=== PATIENT | female | born 1930 | race Caucasian/White ===

== ENCOUNTER 2019-01-14 11:16 | Observation (INO) | payer MEDICARE ==
[2019-01-14] MEDS ORDERED: TYLENOL EXTRA STRENGTH 500 MG PO ONE (15:21)
[2019-01-14 15:38] LABS: Hematocrit 41.3 % (35-47); Hemoglobin 13.4 gm/dl (12.0-16.0); Mean Cell Volume 95.4 fl (78-100); Mean Corpuscular Hemoglobin 30.9 pg (26-32); Mean Corpuscular Hgb Concent. 32.4 g/dl (32-36); Mean Platelet Volume 11.2 fl (6-9.5); Platelet Count 251 K/mm3 (150-450); Red Blood Count 4.33 M/mm3 (4.1-5.4); Red Cell Distribution Width 13.3 % (11.5-14.0); White Blood Count 5.6 K/mm3 (4.0-10.5)
[2019-01-14 15:55] LABS: ALBUMIN 4.2 g/dL (3.5-5.0); ALKALINE PHOSPHATASE 79 U/L (38-126); ANION GAP 11.8 MEQ/L (5-15); BLOOD UREA NITROGEN 19 mg/dL (7-17); CHLORIDE 105 mmol/L (98-107); Carbon Dioxide 27 mmol/L (22-30); Creatinine 1 0.82 mg/dL (0.52-1.04); Glucose 119 mg/dL (74-106); Potassium 3.5 mmol/L (3.5-5.1); SGOT/AST 23 U/L (14-36); SGPT/ALT 16 U/L (0-35); SODIUM 141 mmol/L (137-145); Total Protein 7.4 g/dL (6.3-8.2)
[2019-01-14 16:12] VITALS: BP 127/60; PULSE 92; O2SAT 96
--- NOTE | 2019-01-14 17:17 | XRAY ---
Exam: Supine film of the abdomen from 01/14/2019. Comparison: CT of the abdomen and pelvis without and with IV contrast from 01/08/2019. Indication: Back pain/fecal stasis in 88-year-old female. Findings: I see retained CT oral contrast within the transverse colon, descending colon, and sigmoid colon. The distal transverse colon and proximal descending colon appear tortuous in course. I do not see any significant remaining stool within the colon, although there may be a small amount within the lateral aspect of the cecum. There is no bowel distention. There is no evidence of hepatosplenomegaly. Significant atherosclerotic vascular calcification is seen within the abdominal aorta and iliac arteries. I again note a mild distal abdominal aortic aneurysm, better demonstrated on the CT study from 01/08/2019. No other suspicious abdominal calcifications are seen. Surgical clips overlie the left groin at the inferior margin of the film. The bones are demineralized. Numerous chronic appearing compression deformities are seen within the lower thoracic and upper lumbar spine as well as the central aspect of the superior vertebral endplate of L5. This is similar to the recent CT study. Impression: 1. Retained CT oral contrast is seen within the transverse colon, descending colon, and sigmoid colon. There is no bowel obstruction. No significant remaining stool is seen within the colon. 2. Other stable findings, as discussed above.
== END 2019-01-14 18:35 | disposition home or self-care (01) ==
LOC: MED SURG 11:29
PROVIDERS: ADMIT Family Medicine; ATTEND Family Medicine
DX: K59.00 Constipation, unspecified (principal); Z79.899 Other long term (current) drug therapy
CPT/HCPCS: 36415; 74018; 80053; 85027; G0378; A9270-GY

== ENCOUNTER 2019-04-21 16:31 | Emergency (ER) | payer MEDICARE ==
--- NOTE | 2019-04-21 17:28 | ERPHSYRPT ---
- History of Present Illness Time Seen by Provider: 04/21/19 16:45 Source: patient, family, EMS Exam Limitations: no limitations Patient Subjective Stated Complaint: Pt fell on [place] on her right hip and her walker fell on top of her, pt has chronic back pain and is to have an MRI done tomorrow per Dr. Gaming office, pt isn't sure why she is here because she stated that she isn't feeling any additional pain, she stated that the pain that she is having is her regular chronic back pain that she has Triage Nursing Assessment: Pt arrived by EMS, hypotensive, edema to right lower extremity, denies pain to right hip, denies any additional pain from the fall, chronic pain to the lumbar spine, rates pain 7/10 from her back, doesn't appear to have any injuries Physician History: 88 y/o white female presents after a fall at home occurring [place]. pt fell onto her right hip. walker than fell on right hip. pt denies any new pain. pt has chronic back pain. pt has mri of spine tomorrow as outpt. family want the right hip xrayed. pt has no complaints. Occurred: just prior to arrival Reason for Fall: lost balance, slipped Injuries/Pain Location: lower extremity (fell onto right hip but no specific pain) Loss of Consciousness: no loss of consciousness Severity of Pain-Max: none Severity of Pain-Current: none Associated Symptoms (Fall): denies symptoms Allergies/Adverse Reactions: acetaminophen [From Vicodin] Adverse Reaction (Mild, Verified 04/21/19 16:53) NASUEA cyclobenzaprine Adverse Reaction (Mild, Verified 04/21/19 16:53) Nausea diazepam [From Valium] Adverse Reaction (Mild, Verified 04/21/19 16:53) Nausea hydrocodone [From Vicodin] Adverse Reaction (Mild, Verified 04/21/19 16:53) NASUEA sulfamethoxazole [From Bactrim] Adverse Reaction (Mild, Verified 04/21/19 16:53) Nausea trimethoprim [From Bactrim] Adverse Reaction (Mild, Verified 04/21/19 16:53) Nausea Home Medications: Aspirin 81 gm Chew [Baby Aspirin 81 mg Chew] 81 mg PO DAILY 05/05/16 [ History] Atorvastatin Calcium [Lipitor] 10 mg PO DAILY 05/05/16 [History] Meclizine HCl 25 mg [Antivert 25 mg] 25 mg PO UD 05/05/16 [History] Metoprolol Succinate 25 mg Xl* [Toprol-Xl 25MG Tablets] 25 mg PO DAILY [History] Nitroglycerin 0.4 mg Tablet [Nitrostat 0.4 MG Tablet] 0.4 mg SL UD PRN [History] Diclofenac Sodium [Voltaren] 1 gel TOP TID PRN 01/14/19 [History] Docusate Sodium 100 mg [Colace 100 MG] 100 mg PO BID 01/14/19 [History] Triamterene/Hydrochlorothiazid [Triamterene-Hctz 37.5-25 mg Tb] 1 tab PO UD 03/27 [History] Hx Tetanus, Diphtheria Vaccination/Date Given: No Hx Influenza Vaccination/Date Given: Yes Hx Pneumococcal Vaccination/Date Given: Yes - Review of Systems Constitutional: No Symptoms Eyes: No Symptoms Ears, Nose, & Throat: No Symptoms Respiratory: No Symptoms Cardiac: No Symptoms Abdominal/Gastrointestinal: No Symptoms Genitourinary Symptoms: No Symptoms Musculoskeletal: Fall Skin: No Symptoms Neurological: No Symptoms Psychological: No Symptoms Endocrine: No Symptoms Hematologic/Lymphatic: No Symptoms Immunological/Allergic: No Symptoms All Other Systems: Reviewed and Negative - Past Medical History Pertinent Past Medical History: Yes Neurological History: No Pertinent History ENT History: No Pertinent History Cardiac History: Hypertension, Myocardial Infarction ([place]) Respiratory History: No Pertinent History Endocrine Medical History: Diabetes Type II Musculoskeletal History: Arthritis, Degenerative Disk Disease GI Medical History: Other History: Other Psycho-Social History: No Pertinent History Female Reproductive Disorders: No Pertinent History Other Medical History: hx of constipation x 2 weeks, possible abdominal mass found on cat scan last week. - Past Surgical History Past Surgical History: Yes Neuro Surgical History: No Pertinent History Cardiac: CABG Respiratory: No Pertinent History Gastrointestinal: No Pertinent History Genitourinary: No Pertinent History Musculoskeletal: No Pertinent History Female Surgical History: No Pertinent History - Social History Smoking Status: Former smoker Exposure to second hand smoke: No Drug Use: none Patient Lives Alone: Yes - Nursing Vital Signs Nursing Vital Signs: Initial Vital Signs Temperature 97.5 F 04/21/19 16:32 Pulse Rate 82 04/21/19 16:32 Blood Pressure 96/58 04/21/19 16:32 O2 Sat by Pulse Oximetry 99 04/21/19 16:32 Pain Scale Pain Intensity 7 - [place] Coma Score Best Eye Response ([place]): (4) open spontaneously Best Verbal Response ([place]): (5) oriented Best Motor Response (Jeri): (6) obeys commands [place] Total: 15 - Physical Exam General Appearance: no apparent distress Head Injury: no evidence of injury Eye Exam: PERRL/EOMI, eyes nml inspection ENT Exam: airway nml, evidence of ENT injury Neck Exam: supple, trachea midline, full range of motion, normal alignment, normal inspection Respiratory/Chest Exam: No respiratory distress Gastrointestinal Exam: No tenderness Rectal Exam: not done Back Exam: normal inspection, vertebral tenderness (chronic), decreased range of motion (chronic) Extremity Exam: normal inspection, normal range of motion, pelvis stable, other (no ecchymosis or tenderness of right hip ) Neurologic Exam: alert, oriented x 3, cooperative, assembler caterpillar spider II-XII nml as tested Skin Exam: normal color, warm, dry SpO2 Interpretation: normal SpO2: 99 O2 Delivery: Room Air Ordered Tests: Active Orders 24 hr Category Date Time Status HIP UNI (2V) INCL PEL IF DONE Stat Exams 04/21/19 17:00 Ordered - Progress Progress Note: 04/21/19 18:04 xray right hip-no acute fx or dislocation Counseled pt/family regarding: need for follow-up, rad results - Departure Departure Disposition: Home Clinical Impression: Fall Condition: Stable Critical Care Time: No Referrals: WENCESLAO CASTANEDA [Primary Care Provider] - Additional Instructions: return tomorrow for MRI you have scheduled
[2019-04-21 19:13] VITALS: O2SAT 98
[2019-04-21 20:09] VITALS: BP 129/73; PULSE 78
--- NOTE | 2019-04-22 08:46 | XRAY ---
Indication: Right hip pain following fall. Comparison: June 11, 2018. 2 views of the right hip again demonstrates osteopenia, surgical clips, and scattered vascular calcifications. No new/acute bony, articular, or soft tissue abnormalities.
== END 2019-04-21 20:25 | disposition home or self-care (01) ==
LOC: ED 16:31
DX: M25.551 Pain in right hip (principal); W01.198A Fall on same level from slipping, tripping and stumbling with subsequent striking against other object, initial encounter; Y93.89 Activity, other specified; Y92.9 Unspecified place or not applicable; M54.9 Dorsalgia, unspecified; G89.29 Other chronic pain; Z79.899 Other long term (current) drug therapy; E11.9 Type 2 diabetes mellitus without complications; I10 Essential (primary) hypertension; I25.2 Old myocardial infarction; M19.90 Unspecified osteoarthritis, unspecified site
CPT/HCPCS: 73502; 99284

== ENCOUNTER 2019-05-23 01:53 | Inpatient (IN) | payer MEDICARE ==
[2019-05-23] MEDS ORDERED: Sodium Chloride 0.9% 1000 ML 1,000 ML IV STA (02:03)
[2019-05-23] MEDS ORDERED: BENADRYL 50 MG/ML IV ONE (02:03)
[2019-05-23] MEDS ORDERED: Pepcid 20 MG VIAL IV ONE ×2 (02:03→02:08)
[2019-05-23] MEDS ORDERED: Sodium Chloride 0.9% 1000 ML 1,000 ML ONE (02:08)
[2019-05-23] MEDS ORDERED: BENADRYL 50 MG/ML ONE (02:08)
--- NOTE | 2019-05-23 02:25 | ERPHSYRPT ---
- History of Present Illness Time Seen by Provider: 05/23/19 02:05 Historian: patient Exam Limitations: no limitations Patient Subjective Stated Complaint: pt c/o freq vomiting at home. also c/o back pain Triage Nursing Assessment: pt arrive per ambulance. transfer to [facility] with assist of 3. pt alert, oriented to person and able to give the date and year. unsure how long she has been sick at home. ems states that pt has a neighbor that checks on her frequently and states that this level of confusion is the pt' s norm. abd soft and nontender. Physician History: Patient has had vomiting for 4 days. Patient was concerned it could be her heart. She hit her medic alert button and EMS went to her home. They gave her Zofran on the way to the emergency department which has helped her symptoms. Timing/Duration: day(s) (5) Activities at Onset: none Quality: burning Abdominal Pain Onset Location: epigastric Pain Radiation: no radiation Severity of Pain-Max: mild Severity of Pain-Current: none Modifying Factors: Improves With: nothing Associated Symptoms: nausea, vomiting, No back, No chest pain, No diaphoresis, No diarrhea, No fever/chills, No fatigue, No headache, No heartburn, No loss of appetite, No neck pain, No rash, No shortness of breath, No syncope, No weakness Previous symptoms: no prior history, no recent treatment Allergies/Adverse Reactions: acetaminophen [From Vicodin] Adverse Reaction (Mild, Verified 04/21/19 16:53) NASUEA cyclobenzaprine Adverse Reaction (Mild, Verified 04/21/19 16:53) Nausea diazepam [From Valium] Adverse Reaction (Mild, Verified 04/21/19 16:53) Nausea hydrocodone [From Vicodin] Adverse Reaction (Mild, Verified 04/21/19 16:53) NASUEA sulfamethoxazole [From Bactrim] Adverse Reaction (Mild, Verified 04/21/19 16:53) Nausea trimethoprim [From Bactrim] Adverse Reaction (Mild, Verified 04/21/19 16:53) Nausea Home Medications: Aspirin 81 gm Chew [Baby Aspirin 81 mg Chew] 81 mg PO DAILY 05/05/16 [ History] Atorvastatin Calcium [Lipitor] 10 mg PO DAILY 05/05/16 [History] Meclizine HCl 25 mg [Antivert 25 mg] 25 mg PO UD 05/05/16 [History] Metoprolol Succinate 25 mg Xl* [Toprol-Xl 25MG Tablets] 25 mg PO DAILY [History] Nitroglycerin 0.4 mg Tablet [Nitrostat 0.4 MG Tablet] 0.4 mg SL UD PRN [History] Diclofenac Sodium [Voltaren] 1 gel TOP TID PRN 01/14/19 [History] Docusate Sodium 100 mg [Colace 100 MG] 100 mg PO BID 01/14/19 [History] Triamterene/Hydrochlorothiazid [Triamterene-Hctz 37.5-25 mg Tb] 1 tab PO UD 03/27 [History] Hx Tetanus, Diphtheria Vaccination/Date Given: No Hx Influenza Vaccination/Date Given: Yes Hx Pneumococcal Vaccination/Date Given: Yes Immunizations Up to Date: No - Review of Systems Constitutional: No Fever, No Chills, No Fatigue Eyes: No Symptoms Ears, Nose, & Throat: No Symptoms, No Mouth Swelling, No Throat Pain, No Throat Swelling, No Painful Swallowing Respiratory: No Cough, No Dyspnea Cardiac: No Chest Pain, No Edema, No Syncope Abdominal/Gastrointestinal: Nausea, Vomiting, No Abdominal Pain, No Diarrhea, No Constipation, No Hematemesis, No Hematochezia, No Melena Genitourinary Symptoms: No Dysuria, No Hematuria, No Flank Pain Musculoskeletal: No Back Pain, No Neck Pain Skin: No Rash Neurological: No Dizziness, No Focal Weakness, No Headache, No Sensory Changes, No Speech Changes, No Tremors Psychological: No Symptoms, No Emotional Lability Endocrine: No Symptoms, No Excessive Sweating Hematologic/Lymphatic: No Easy Bleeding, No Easy Bruising All Other Systems: Reviewed and Negative - Past Medical History Pertinent Past Medical History: Yes Neurological History: No Pertinent History ENT History: No Pertinent History Cardiac History: Hypertension, Myocardial Infarction ([place]) Respiratory History: No Pertinent History Endocrine Medical History: Diabetes Type II Musculoskeletal History: Arthritis, Degenerative Disk Disease GI Medical History: Other History: Other Psycho-Social History: No Pertinent History Female Reproductive Disorders: No Pertinent History Other Medical History: hx of possible abd mass- pt unable to give hx. - Past Surgical History Past Surgical History: Yes Neuro Surgical History: No Pertinent History Cardiac: CABG Respiratory: No Pertinent History Gastrointestinal: No Pertinent History Genitourinary: No Pertinent History Musculoskeletal: No Pertinent History Female Surgical History: No Pertinent History - Social History Smoking Status: Former smoker Exposure to second hand smoke: No Drug Use: none Patient Lives Alone: Yes - Nursing Vital Signs Nursing Vital Signs: Initial Vital Signs Pulse Rate 81 05/23/19 01:58 Respiratory Rate 16 05/23/19 01:58 Blood Pressure 167/76 05/23/19 01:58 O2 Sat by Pulse Oximetry 99 05/23/19 01:58 Pain Scale Pain Intensity 0 - Physical Exam General Appearance: no apparent distress, alert Eye Exam: PERRL/EOMI, eyes nml inspection, No scleral icterus, No pale conjunctivae Ears, Nose, Throat Exam: normal ENT inspection, pharynx normal, moist mucous membranes Neck Exam: normal inspection, non-tender, supple, full range of motion, No meningismus, No Brudzinski, No lymphadenopathy Respiratory Exam: normal breath sounds, lungs clear, airway intact, No respiratory distress, No diminished breath sounds, No accessory muscle use, No crackles/rales, No rhonchi, No wheezing, No stridor Cardiovascular Exam: regular rate/rhythm, normal heart sounds, normal peripheral pulses, capillary refill <2 sec Gastrointestinal/Abdomen Exam: soft, normal bowel sounds, No tenderness, No distention, No mass, No guarding, No pulsatile mass, No rebound Back Exam: normal inspection, normal range of motion, No CVA tenderness, No vertebral tenderness Extremity Exam: normal inspection, normal range of motion, pelvis stable Neurologic Exam: alert, cooperative, respiratory clinician II-XII nml as tested, normal mood/ affect, nml cerebellar function, sensation nml, No motor deficits Skin Exam: normal color, warm, dry, No rash, No petechiae, No cyanosis SpO2 Interpretation: normal SpO2: 99 O2 Delivery: Room Air - Course Nursing assessment & vital signs reviewed: Yes EKG Interpreted by Me: RATE (84), Sinus Rhythm, NORMAL AXIS, NORMAL INTERVALS, NORMAL QRS, NORMAL ST-T, Other (rare PVC; negative previous EKG for comparison) - Radiology Exams Chest X-ray Interpretation: Interpreted by me, Reviewed by me, No Fracture, No Pneumonia, No Pneumothorax, Nml Heart Size, No Infiltrates, Nml Mediastinum - CT Exams Abdomen/Pelvis CT Interpretation: Tele-radiologist Report, Other (per radiologist interpretation: Lungs show any atelectasis or scarring in the left lower lobe; small hiatal hernia; distended distal esophagus was suggestive of reflux. Liver : Normal with no masses; gallbladder bile duct: Distended gallbladder; pancreas, , spleen, kidneys and ureters were normal with no signs of splenomegaly, hydronephrosis, or ductal dilation; adrenals: Stable undetermined left adrenal mass; stomach and rales: Scattered colonic diverticula. No evidence of acute reticularis. No bowel structures. Appendix: Normal appendix; it appears: Unremarkable. No free air. No significant fluid collection. [place]: Atherosclerotic disease of the abdominal aorta. The vessels markedly tortuous and dilated at 2.5 cm. Lymph nodes: No enlarged lymph nodes; bladder: Mildly distended urinary bladder; rectal: Unremarkable; bones: Osteopenia stable compression deformities of multiple thoracic and lumbar vertebrae; soft tissues : Surgical clips in the left groin. Overall impression: Small hiatal hernia. Distended distal esophagus suggestive of reflux. As her gallbladder about other serious signs acute cholecystitis. Scattered colonic diverticula. No evidence of acute diverticulitis. No bowel structures appeared normal appendix. atherosclerotic disease of the abdominal aorta. The vessel is markedly tortuous and dilated to 2.5 cm.) Ordered Tests: Active Orders 24 hr Category Date Time Status EKG-ER Only STAT Care 05/23/19 02:03 Active IV Insertion STAT Care 05/23/19 02:03 Active NPO (ED) STAT Care 05/23/19 02:03 Active ABDOMEN AND PELVIS W/0 CONTRAS [CT] Stat Exams 05/23/19 02:41 Taken CHEST 1 VIEW (PORTABLE) Stat Exams 05/23/19 02:03 Taken AMYLASE Stat Lab 05/23/19 02:48 Completed CBC W DIFF Stat Lab 05/23/19 02:48 Completed CMP Stat Lab 05/23/19 02:48 Completed Lactic Acid Stat Lab 05/23/19 02:40 Completed PROTIME WITH INR Stat Lab 05/23/19 02:48 Completed TROPONIN Q3H Lab 05/23/19 02:48 Completed TROPONIN Q3H Lab 05/23/19 05:38 Completed TROPONIN Q3H Lab 05/23/19 08:15 Ordered TROPONIN Q3H Lab 05/23/19 11:15 Ordered TROPONIN Q3H Lab 05/23/19 14:15 Ordered UA W/RFX UR CULTURE Stat Lab 05/23/19 02:03 Uncollected Medication Summary Discontinued Medications Generic Name Dose Route Start Last Admin Trade Name Home PRN Reason Stop Dose Admin Diphenhydramine HCl 25 mg 05/23/19 02:03 05/23/19 02:19 Benadryl 50 Mg/Ml IV 05/23/19 02:04 25 mg STAT ONE Administration Diphenhydramine HCl Confirm 05/23/19 02:08 Benadryl 50 Mg/Ml Administered 05/23/19 02:09 Dose 50 mg .ROUTE .STK-MED ONE Famotidine 20 mg 05/23/19 02:03 05/23/19 02:20 Pepcid 20 Mg Vial IV 05/23/19 02:04 20 mg STAT ONE Administration Famotidine Confirm 05/23/19 02:08 Pepcid 20 Mg Vial Administered 05/23/19 02:09 Dose 20 mg IV .STK-MED ONE Sodium Chloride 1,000 mls @ 999 mls/hr 05/23/19 02:03 05/23/19 02:35 Sodium Chloride 0.9% 1000 Ml IV 05/23/19 03:03 999 mls/hr .Q1H1M STA Administration Sodium Chloride Confirm 05/23/19 02:08 Sodium Chloride 0.9% 1000 Ml Administered 05/23/19 02:09 Dose 1,000 mls @ ud .ROUTE .STK-MED ONE Lab/Rad Data: Laboratory Result Diagrams 05/23/19 02:48 05/23/19 02:48 Laboratory Results 05/23/19 05/23/19 05/23/19 Range/Units 05:38 02:48 02:48 WBC (4.0-10.5) K/mm3 RBC (4.1-5.4) M/mm3 Hgb (12.0-16.0) gm/dl Hct (35-47) % MCV (78-100) fl MCH (26-32) pg MCHC (32-36) g/dl RDW (11.5-14.0) % Plt Count (150-450) K/mm3 MPV (6-9.5) fl Gran % (36.0-66.0) % Eos # (Auto) (0-0.5) Absolute Lymphs (auto) (1.0-4.6) Absolute Monos (auto) (0.0-1.3) Lymphocytes % (24.0-44.0) % Monocytes % (0.0-12.0) % Eosinophils % (0.00-5.0) % Basophils % (0.0-0.4) % Absolute Granulocytes (1.4-6.9) Basophils # (0-0.4) PT 13.2 H (9.95-12.35) SECONDS INR 1.16 (0.8-3.0) Sodium (137-145) mmol/L Potassium (3.5-5.1) mmol/L Chloride (98-107) mmol/L Carbon Dioxide (22-30) mmol/L Anion Gap (5-15) MEQ/L BUN (7-17) mg/dL Creatinine (0.52-1.04) mg/dL Estimated GFR ML/MIN Glucose (74-106) mg/dL Lactic Acid (0.4-2.0) Calcium (8.4-10.2) mg/dL Total Bilirubin (0.2-1.3) mg/dL AST (14-36) U/L ALT (0-35) U/L Alkaline Phosphatase (38-126) U/L Troponin I 0.030 0.015 (0.000-0.034) ng/mL Serum Total Protein (6.3-8.2) g/dL Albumin (3.5-5.0) g/dL Amylase (30-110) U/L 05/23/19 05/23/19 05/23/19 Range/Units 02:48 02:48 02:40 WBC 6.1 (4.0-10.5) K/mm3 RBC 4.06 L (4.1-5.4) M/mm3 Hgb 12.3 (12.0-16.0) gm/dl Hct 39.1 (35-47) % MCV 96.3 (78-100) fl MCH 30.2 (26-32) pg MCHC 31.5 L (32-36) g/dl RDW 13.8 (11.5-14.0) % Plt Count 262 (150-450) K/mm3 MPV 11.1 H (6-9.5) fl Gran % 69.0 H (36.0-66.0) % Eos # (Auto) 0.03 (0-0.5) Absolute Lymphs (auto) 1.33 (1.0-4.6) Absolute Monos (auto) 0.52 (0.0-1.3) Lymphocytes % 21.7 L (24.0-44.0) % Monocytes % 8.5 (0.0-12.0) % Eosinophils % 0.5 (0.00-5.0) % Basophils % 0.3 (0.0-0.4) % Absolute Granulocytes 4.22 (1.4-6.9) Basophils # 0.02 (0-0.4) PT (9.95-12.35) SECONDS INR (0.8-3.0) Sodium 145 (137-145) mmol/L Potassium 3.7 (3.5-5.1) mmol/L Chloride 106 (98-107) mmol/L Carbon Dioxide 28 (22-30) mmol/L Anion Gap 14.4 (5-15) MEQ/L BUN 23 H (7-17) mg/dL Creatinine 0.79 (0.52-1.04) mg/dL Estimated GFR > 60.0 ML/MIN Glucose 141 H (74-106) mg/dL Lactic Acid 1.4 (0.4-2.0) Calcium 9.9 (8.4-10.2) mg/dL Total Bilirubin 0.80 (0.2-1.3) mg/dL AST 18 (14-36) U/L ALT 12 (0-35) U/L Alkaline Phosphatase 61 (38-126) U/L Troponin I (0.000-0.034) ng/mL Serum Total Protein 7.7 (6.3-8.2) g/dL Albumin 4.2 (3.5-5.0) g/dL Amylase 70 (30-110) U/L - Progress Progress: improved Progress Note: 05/23/19 05:00 Patient is asymptomatic with no vomiting since coming into the emergency department 05/23/19 06:30 Patient feels well and denies any nausea, chest pain, dyspnea, back pain or abdominal pain. Discussed with Dr.: Kevin (06:50, discussed the patient with Dr Terrazas, hospitalist. Dr Terrazas accepted the patient for observation to [facility] to a telemetry bed to continue monitoring serial cardiac enzymes ) Will see patient in: hospital (observation) (@ [facility] telemetry) Counseled pt/family regarding: diagnosis, need for follow-up, rad results - Departure Departure Disposition: Observation (to [facility] telemetry) Clinical Impression: Vomiting alone, Hiatal hernia with gastroesophageal reflux, Essential hypertension, Elevated troponin I measurement Condition: Good Critical Care Time: No Referrals: WENCESLAO TERRAZAS [Primary Care Provider] - 05/23/19 Instructions: Vomiting -- Adult, Acid Reflux (Gastroesophageal Reflux Disease) , Adult (DC), Hiatal Hernia (DC) Prescriptions: Ondansetron ODT 4 MG [Zofran Odt 4 mg] 4 mg PO Q8H PRN PRN #10 tab.rapdis PRN Reason: Vomiting
[2019-05-23 02:49] LABS: Absolute Neutrophil Ct (ANC) 4.22 (1.4-6.9); BASOPHIL % 0.3 % (0.0-0.4); Basophil (Absolute #) 0.02 (0-0.4); Eosinophil % 0.5 % (0.00-5.0); Eosinophil (Absolute #) 0.03 (0-0.5); Hematocrit 39.1 % (35-47); Hemoglobin 12.3 gm/dl (12.0-16.0); Lymphocyte (Absolute #) 1.33 (1.0-4.6); Lymphocytes % 21.7 % (24.0-44.0); Mean Cell Volume 96.3 fl (78-100); Mean Corpuscular Hgb Concent. 31.5 g/dl (32-36); Mean Platelet Volume 11.1 fl (6-9.5); Monocyte (Absolute #) 0.52 (0.0-1.3); Monocytes % 8.5 % (0.0-12.0); Platelet Count 262 K/mm3 (150-450); Red Blood Count 4.06 M/mm3 (4.1-5.4); Red Cell Distribution Width 13.8 % (11.5-14.0); White Blood Count 6.1 K/mm3 (4.0-10.5)
[2019-05-23 02:52] LABS: Mean Corpuscular Hemoglobin 30.2 pg (26-32)
[2019-05-23 02:55] LABS: INR 1.16 (0.8-3.0); PROTIME 13.2 SECONDS (9.95-12.35)
[2019-05-23 03:01] LABS: ALBUMIN 4.2 g/dL (3.5-5.0); ALKALINE PHOSPHATASE 61 U/L (38-126); AMYLASE 70 U/L (30-110); ANION GAP 14.4 MEQ/L (5-15); BLOOD UREA NITROGEN 23 mg/dL (7-17); CHLORIDE 106 mmol/L (98-107); Calcium 9.9 mg/dL (8.4-10.2); Carbon Dioxide 28 mmol/L (22-30); Creatinine 1 0.79 mg/dL (0.52-1.04); Glucose 141 mg/dL (74-106); Potassium 3.7 mmol/L (3.5-5.1); SGOT/AST 18 U/L (14-36); SGPT/ALT 12 U/L (0-35); SODIUM 145 mmol/L (137-145); Total Protein 7.7 g/dL (6.3-8.2)
[2019-05-23] MEDS ORDERED: TYLENOL 325 MG PO PRN (07:20)
[2019-05-23] MEDS ORDERED: Zofran 4 MG/2 ML VIAL IV PRN (07:20)
[2019-05-23] MEDS ORDERED: MORPHINE SULFATE 4 MG INJ IV PRN (07:20)
[2019-05-23] MEDS: Sodium Chloride 0.9% 1000 ML 1,000 ML IV SCH (07:46)
--- NOTE | 2019-05-23 09:23 | XRAY ---
Indication: Nausea and vomiting 10 days. History dementia. Multiple contiguous axial images obtained through the abdomen and pelvis without contrast as ordered. Comparison: January 08, 2019. Study is slightly degraded by respiration artifact. Lung bases again demonstrates minimal fibrosis/scarring. No infiltrate or effusion. Heart is not enlarged. Stable moderate-sized fluid distended hiatal hernia presumed from gastroesophageal reflux. Noncontrasted stomach and bowel loops appear nonobstructed. Again mild scattered fecal stasis. Gallbladder again moderately distended without gallstones. No free fluid/air. Stable left adrenal gland mass with faint calcification. Remaining liver, gallbladder, pancreas, spleen, adrenal glands, kidneys, ureters, bladder, and uterus appear unremarkable for noncontrast exam. There remains extensive scattered vascular calcifications with stable 3 cm AAA. Osseous structures demonstrates stable osteopenia, multilevel degenerative spondylosis, scoliosis, and multilevel thoracolumbar endplate concave deformities. Impression: 1. Stable hiatal hernia, left adrenal gland calcified mass, mild fecal stasis, distended gallbladder, extensive arteriosclerotic disease with distal AAA, and chronic bony findings. 2. No new or acute intra-abdominal/pelvic abnormalities on this noncontrast exam. CT DI 2.91
--- NOTE | 2019-05-23 09:25 | XRAY ---
Indication: Vomiting. Comparison: December 02, 2010. Portable apical lordotic chest again hyperinflated without focal infiltrate, consolidation, or large effusion. Heart is not enlarged again demonstrating CABG surgery. Bony thorax intact again with osteopenia and degenerative changes. Impression: Stable nonacute hyperinflated chest with chronic features.
--- NOTE | 2019-05-23 09:43 | HP ---
CHIEF COMPLAINT: Chest discomfort and difficulty swallowing. HISTORY OF PRESENT ILLNESS: The patient is an 88 year-old white female presented to the emergency room due to worries about her heart although she reports that mostly her trouble is with swallowing food. She reports they seem to get stuck in the middle portion of her chest and she has had to bring it up again because it will not go down. The patient does have some issues with some dementia and is difficult to follow her history otherwise. There is no one else present with her in evaluation at this time. PAST MEDICAL/SURGICAL HISTORY: Significant for vertigo. She has mild hypertension. She has previous history of diabetes mellitus type 2, arthritis, degenerative disc disease. HOME MEDICATIONS: Aspirin 81 mg a day, atorvastatin 10 mg a day, Macrobid 25 mg daily, Metoprolol extended release 25 mg a day, nitroglycerin 0.4 mg sublingual PRN, Voltaren gel, docusate sodium 100 mg b.i.d. and Maxzide 25 daily. ALLERGIES: NORCO. CYCLOBENZAPRINE. DIAZEPAM. BACTRIM. PHYSICAL EXAMINATION: The patient's vital signs on admission showed pulse 81, respiratory rate 16 and blood pressure 167/76. O2 saturation 99%. HEENT: Normocephalic, atraumatic. Pupils equal round reactive to light. Extraocular movements intact. Oropharynx is pink and moist. NECK: Supple without lymphadenopathy, thyromegaly or JVD. CHEST: Clear to auscultation. HEART: Regular rate and rhythm without significant murmurs, rubs or gallops. ABDOMEN: Soft. No palpable masses. EXTREMITIES: Without cyanosis, clubbing or edema. NEUROLOGIC: The patient appears to be alert and oriented x3 presently but does ramble in her history. LAB DATA AND TESTS: The patient's laboratory studies thus far have shown troponins to be slightly increasing initially with 0.017, increased to 0.030 still below abnormal values in our lab. Lactic acid is 1.4. White count 6,100, hemoglobin 12.3, PLT count 260,000. International normalized ratio is 1.16. Her sugar was 141, BUN 23, creatinine 0.79. Electrolytes were normal. Liver enzymes were normal. Amylase was normal. Troponin as mentioned above. EKG showed sinus rhythm with occasional PVC. There appears to be no significant abnormality on her EKG. ASSESSMENT: The patient was subsequently admitted to the hospital for observation due to slightly increased troponin and complaint of chest discomfort. The patient also now has complaints of dysphagia. We will obtain a modified barium swallow to see if the patient actually has a stricture causing her trouble. The family has now stated that they wish the patient to be admitted to a senior living and she will need a three day qualifying stay.
--- NOTE | 2019-05-23 10:28 | XRAY ---
Indication: Dysphagia. Modified barium swallow study was performed by the department of speech therapy with fluoroscopic assistance provided. Patient ingested multiple consistencies of liquids and solids. Full report and recommendations will be reported separately. Approximately 1 minute and 57 seconds fluoroscopy used.
[2019-05-23 14:21] LABS: Appearance CLOUDY (CLEAR); Bacteria PACKED /HPF (NEGATIVE); Bilirubin NEGATIVE (NEGATIVE); Blood MODERATE Ery/ul (0-5); Glucose NEGATIVE (NEGATIVE); Ketones SMALL (NEGATIVE); Leukocyte Esterase LARGE (NEGATIVE); Mucus SLIGHT /HPF (NEGATIVE); Nitrite NEGATIVE (NEGATIVE); Protein,Urine Dip 30 (Negative); RBC 51-100 /HPF (0-2); Urobilinogen NEGATIVE mg/dL (0-1); WBC >100 /HPF (0-5)
[2019-05-23] MEDS ORDERED: ANTIVERT 25 MG PO PRN (14:23)
[2019-05-23] MEDS ORDERED: Nitrostat 0.4 MG Tablet SL PRN (14:23)
[2019-05-23] MEDS ORDERED: Maxzide 25MG PO SCH (14:30)
[2019-05-23] MEDS: Miralax Powder 17GM PACKET PO SCH (15:06)
[2019-05-23] MEDS: Pepcid 20 MG PO SCH ×2 (15:06→20:38)
[2019-05-23] MEDS: ENOXAPARIN SODIUM SQ SCH (15:06)
[2019-05-23] MEDS ORDERED: Levofloxacin 500MG/100ML D5W 500 MG/100 ML BAG IV SCH (16:00)
[2019-05-23] MEDS: Colace 100 MG PO SCH (20:37)
[2019-05-23] MEDS: AMITIZA PO SCH (20:37)
[2019-05-23] MEDS: KENALOG 0.1% CREAM 15 GM TP SCH (20:37)
[2019-05-23] MEDS: Toprol-Xl 25MG Tablets PO SCH (20:38)
[2019-05-23] MEDS: Zocor 10MG PO SCH (20:39)
[2019-05-23] MEDS ORDERED: NON-FORMULARY ITEM (Atorvastatin Calcium [Lipitor] 10 MG) PO SCH (22:00)
[2019-05-24] MEDS: Sodium Chloride 0.9% 1000 ML 1,000 ML IV SCH ×2 (05:49→06:54)
[2019-05-24] MEDS ORDERED: BABY ASPIRIN 81 MG CHEW PO SCH (10:00)
[2019-05-24] MEDS: Miralax Powder 17GM PACKET PO SCH (10:38)
[2019-05-24] MEDS: Toprol-Xl 25MG Tablets PO SCH ×2 (10:39→21:05)
[2019-05-24] MEDS: SENOKOT 8.6 MG PO SCH (10:41)
[2019-05-24] MEDS: Pepcid 20 MG PO SCH ×2 (10:41→21:05)
[2019-05-24] MEDS: ECOTRIN 81 MG PO SCH (10:41)
[2019-05-24] MEDS: Maxzide-25MG Tablet PO SCH (10:41)
[2019-05-24] MEDS: AMITIZA PO SCH ×2 (10:42→21:05)
[2019-05-24] MEDS: ENOXAPARIN SODIUM SQ SCH (10:43)
[2019-05-24] MEDS: Colace 100 MG PO SCH ×2 (10:44→21:06)
[2019-05-24] MEDS: KENALOG 0.1% CREAM 15 GM TP SCH ×2 (10:44→21:06)
[2019-05-24 14:34] LABS: NT PRO BNP 1780 pg/mL (0-1800)
[2019-05-24 14:36] LABS: TROPONIN < 0.012 ng/mL (0.000-0.034)
[2019-05-24 15:22] LABS: ALBUMIN 3.5 g/dL (3.5-5.0); ALKALINE PHOSPHATASE 54 U/L (38-126); ANION GAP 11.9 MEQ/L (5-15); BLOOD UREA NITROGEN 16 mg/dL (7-17); CHLORIDE 111 mmol/L (98-107); Calcium 8.9 mg/dL (8.4-10.2); Carbon Dioxide 23 mmol/L (22-30); Glucose 120 mg/dL (74-106); Potassium 3.1 mmol/L (3.5-5.1); SGOT/AST 17 U/L (14-36); SGPT/ALT 11 U/L (0-35); SODIUM 143 mmol/L (137-145); Total Protein 6.5 g/dL (6.3-8.2)
[2019-05-24] MEDS ORDERED: Klor Con 10 MEQ PO ONE (16:15)
[2019-05-24] MEDS: Zocor 10MG PO SCH (21:05)
[2019-05-25] MEDS ORDERED: Sodium Chloride 0.9% 10 ML FLUSH Syringe IV PRN (08:15)
--- NOTE | 2019-05-25 08:20 | PCM.NOTE ---
Date and Time: 05/24/19 1400 Subjective Assessment: Patient states she is feeling better not nauseated any longer but is a little weak to stand up.Denies chest pain or pressure or difficuly taking a deep breath.Son,Dejon, is here all day with her,he live 1 1/2 hours away.States Mom live in her own home and has caregivers that come to help her. Her daughter has parkinsons and is not able to help but daughters is around if needed.Patient has CAD and follows with Dr Rendon.Patient states the swelling in her legs has gone down.Denies calf pain.Denies sob,denies cough. Objective Exam Neurologic Exam: alert (oriented to person and place and season), cooperative, normal mood/affect, motor weakness (generalized weakness noticed upon standing - slow to pull up out of chair,able to walk with walker) Skin Exam: normal color, warm, dry Respiratory Exam: normal breath sounds (regular with ectopy) Gastrointestinal/Abdomen Exam: soft (nontender ,no CVA tenderness) Extremity Exam: other (pitting edema bilateral mid calf down) OBJECTIVE DATA Vital Signs: Vital Signs - 24 hr Temp Pulse Resp BP Pulse Ox 05/25/19 07:38 97.7 F 68 18 116/60 95 05/25/19 04:00 98.5 F 62 17 109/53 93 L 05/24/19 23:54 97.9 F 59 L 16 104/52 94 L 05/24/19 20:09 98.6 F 67 18 129/60 94 L 05/24/19 16:30 98 F 78 18 116/64 95 05/24/19 13:27 98.3 F 66 20 117/54 95 Pain Assessment - Last Documented Pain Intensity 0 Pain Scale Used [facility] Intake and Output: Intake & Output 05/22/19 05/23/19 05/24/19 05/25/19 11:59 11:59 11:59 11:59 Intake Total 360 8160 2094 Output Total 600 1000 Balance 360 1850 1094 Weight 47.7 kg 47.2 kg 47.9 kg Lab Results: Lab Results-Last 24 Hours 05/24/19 05/24/19 Range/Units 13:46 14:11 Sodium 143 (137-145) mmol/L Potassium 3.1 L (3.5-5.1) mmol/L Chloride 111 H (98-107) mmol/L Carbon Dioxide 23 (22-30) mmol/L Anion Gap 11.9 (5-15) MEQ/L BUN 16 (7-17) mg/dL Creatinine 0.90 (0.52-1.04) mg/dL Estimated GFR > 60.0 ML/MIN Glucose 120 H (74-106) mg/dL Calcium 8.9 (8.4-10.2) mg/dL Total Bilirubin 0.60 (0.2-1.3) mg/dL AST 17 (14-36) U/L ALT 11 (0-35) U/L Alkaline Phosphatase 54 (38-126) U/L Troponin I < 0.012 (0.000-0.034) ng/mL NT-Pro-B Natriuret Pep 1780 (0-1800) pg/mL Serum Total Protein 6.5 (6.3-8.2) g/dL Albumin 3.5 (3.5-5.0) g/dL Radiology Exams: Radiology Procedures Category Date Time Status MODIFIED BARIUM SWALLOW (RAD) [MODIFIED BARIUM SWALLOW Exams 05/23/19 10:03 Completed EXAM] Urgent Assessment/Plan (1) Elevated troponin I measurement Current Visit: Yes Status: Resolved Assessment & Plan: was up /increasing- yesterday 0.048 but normal today. Code(s): R79.89 - OTHER SPECIFIED ABNORMAL FINDINGS OF BLOOD CHEMISTRY (2) Hypokalemia Current Visit: Yes Status: Acute Assessment & Plan: oral potassium supplemented x 3 days Code(s): E87.6 - HYPOKALEMIA (3) Vomiting alone Current Visit: Yes Status: Resolved Code(s): R11.10 - VOMITING, UNSPECIFIED (4) Difficulty walking Current Visit: Yes Status: Acute Assessment & Plan: due to generalized weakness- start PT Code(s): R26.2 - DIFFICULTY IN WALKING, NOT ELSEWHERE CLASSIFIED
[2019-05-25] MEDS: ENOXAPARIN SODIUM SQ SCH (10:23)
[2019-05-25] MEDS: Pepcid 20 MG PO SCH ×2 (10:23→21:44)
[2019-05-25] MEDS: Colace 100 MG PO SCH ×2 (10:24→21:44)
[2019-05-25] MEDS: SENOKOT 8.6 MG PO SCH (10:24)
[2019-05-25] MEDS: Maxzide-25MG Tablet PO SCH (10:24)
[2019-05-25] MEDS: Miralax Powder 17GM PACKET PO SCH (10:24)
[2019-05-25] MEDS: Klor Con 10 MEQ PO SCH (10:24)
[2019-05-25] MEDS: Toprol-Xl 25MG Tablets PO SCH ×2 (10:24→21:44)
[2019-05-25] MEDS: ECOTRIN 81 MG PO SCH (10:24)
[2019-05-25] MEDS: KENALOG 0.1% CREAM 15 GM TP SCH ×2 (10:25→21:45)
[2019-05-25] MEDS: AMITIZA PO SCH ×2 (10:25→21:44)
[2019-05-25] MEDS: Sodium Chloride 0.9% 10 ML FLUSH Syringe IV SCH ×2 (12:49→21:45)
--- NOTE | 2019-05-25 14:54 | PCM.NOTE ---
Date and Time: 05/25/19 1448 Subjective Assessment: Patients urine culture resulted Providentia bug which is only intermediate sens on current med-Levaquin, changed to Rocephin IV 1 gram now and q day. Has had company today and has not walked in [place] yet. Is stand by assist to go to bathroom. - Review of Systems Constitutional: No Fever, No Chills Respiratory: No Cough, No Short Of Breath Cardiac: Edema (improving LE bilat), No Chest Pain, No Syncope Abdominal/Gastrointestinal: No Abdominal Pain, No Nausea, No Vomiting, No Diarrhea Genitourinary Symptoms: No Dysuria Neurological: Other (LE weaknesa using walker with stand by assist) Psychological: No Symptoms Objective Exam General Appearance: no apparent distress, alert Neurologic Exam: alert (oriented to person and place), normal mood/affect, abnormal gait (requires a walker ,talks without focusing on walking not watching where she is walking.) Gastrointestinal/Abdomen Exam: soft (no ntender) Comments: 05/25/19 22:47 see urine culture OBJECTIVE DATA Vital Signs: Vital Signs - 24 hr Temp Pulse Resp BP Pulse Ox 05/25/19 12:31 98 F 72 20 136/68 95 05/25/19 07:38 97.7 F 68 18 116/60 95 05/25/19 04:00 98.5 F 62 17 109/53 93 L 05/24/19 23:54 97.9 F 59 L 16 104/52 94 L 05/24/19 20:09 98.6 F 67 18 129/60 94 L 05/24/19 16:30 98 F 78 18 116/64 95 Pain Assessment - Last Documented Pain Intensity [address] [facility] Intake and Output: Intake & Output 05/23/19 05/24/19 05/25/19 05/26/19 11:59 11:59 11:59 11:59 Intake Total 360 2450 2694 360 Output Total 600 1450 250 Balance 360 1850 1244 110 Weight 47.7 kg 47.2 kg 47.9 kg Lab Results: Lab Results-Last 24 Hours 05/24/19 Range/Units 14:11 Sodium 143 (137-145) mmol/L Potassium 3.1 L (3.5-5.1) mmol/L Chloride 111 H (98-107) mmol/L Carbon Dioxide 23 (22-30) mmol/L Anion Gap 11.9 (5-15) MEQ/L BUN 16 (7-17) mg/dL Creatinine 0.90 (0.52-1.04) mg/dL Estimated GFR > 60.0 ML/MIN Glucose 120 H (74-106) mg/dL Calcium 8.9 (8.4-10.2) mg/dL Total Bilirubin 0.60 (0.2-1.3) mg/dL AST 17 (14-36) U/L ALT 11 (0-35) U/L Alkaline Phosphatase 54 (38-126) U/L Serum Total Protein 6.5 (6.3-8.2) g/dL Albumin 3.5 (3.5-5.0) g/dL Assessment/Plan (1) Elevated troponin I measurement Current Visit: Yes Status: Resolved Code(s): R79.89 - OTHER SPECIFIED ABNORMAL FINDINGS OF BLOOD CHEMISTRY (2) Hypokalemia Current Visit: Yes Status: Acute Assessment & Plan: replacing with oral potassium Code(s): E87.6 - HYPOKALEMIA (3) Vomiting alone Current Visit: Yes Status: Resolved Code(s): R11.10 - VOMITING, UNSPECIFIED (4) Difficulty walking Current Visit: Yes Status: Acute Assessment & Plan: ambulating with walker with staff,improving Code(s): R26.2 - DIFFICULTY IN WALKING, NOT ELSEWHERE CLASSIFIED (5) UTI (urinary tract infection) Current Visit: Yes Status: Acute Assessment & Plan: change from Levaquin to Rocephin per culture Code(s): N39.0 - URINARY TRACT INFECTION, SITE NOT SPECIFIED
[2019-05-25] MEDS ORDERED: ROCEPHIN 1 Gm-D5w 50 ml Bag** 1 G/50 ML IVPB IV ONE (15:00)
[2019-05-25] MEDS: Zocor 10MG PO SCH (21:45)
[2019-05-25] MEDS: Voltaren GEL TOP PRN (21:59)
[2019-05-26 05:13] LABS: Hematocrit 32.6 % (35-47); Hemoglobin 10.2 gm/dl (12.0-16.0); Mean Cell Volume 95.3 fl (78-100); Mean Corpuscular Hemoglobin 29.8 pg (26-32); Mean Corpuscular Hgb Concent. 31.3 g/dl (32-36); Mean Platelet Volume 10.7 fl (6-9.5); Platelet Count 213 K/mm3 (150-450); Red Blood Count 3.42 M/mm3 (4.1-5.4); Red Cell Distribution Width 13.9 % (11.5-14.0); White Blood Count 5.9 K/mm3 (4.0-10.5)
[2019-05-26] MEDS: Sodium Chloride 0.9% 10 ML FLUSH Syringe IV SCH ×3 (05:20→21:21)
--- NOTE | 2019-05-26 08:26 | PCM.NOTE ---
Date and Time: 05/26/19818 Subjective Assessment: 88 yr old female seen and examined this am following admission for UTI, nausea and vomiting and dehydration. Patient reports that she is feeling much better this am. She reports that she no longer has any nausea and denies any more episodes of vomiting since admission. Patient reports chronic back pain. She reports that she has had some constipation. She reports that her R lower leg has been swollen and red for the past three months. Patient reports that she was short of breath at home but that has improved since admission. - Review of Systems Constitutional: Weakness, No Fever Respiratory: Short Of Breath Cardiac: Edema (R lower extremity), No Chest Pain Abdominal/Gastrointestinal: Constipation, No Abdominal Pain, No Nausea, No Vomiting, No Diarrhea Genitourinary Symptoms: No Dysuria, No Frequency, No Hematuria Musculoskeletal: Back Pain Skin: Other (Erythema R lower extremity) Objective Exam General Appearance: no apparent distress Neurologic Exam: alert, oriented x 3, cooperative, normal mood/affect, No confusion Skin Exam: normal color, warm, dry, other (Small area of erythema R ankle. Skin is rough and dry this area as well.) Eye Exam: eyes nml inspection Ears, Nose, Throat Exam: other (Lips are dry and cracked) Neck Exam: carotid bruit (R sided bruit) Respiratory Exam: normal breath sounds, lungs clear, No chest tenderness, No respiratory distress, No diminished breath sounds Cardiovascular Exam: regular rate/rhythm, normal heart sounds, No murmur, No friction rub, No gallop Gastrointestinal/Abdomen Exam: soft, normal bowel sounds, tenderness ( Suprapubic pain), No distention, No mass Extremity Exam: other (R lower extremity swelling with mild erythema) Back Exam: normal inspection, other (Pain with palpation over sacrum) OBJECTIVE DATA Vital Signs: Vital Signs - 24 hr Temp Pulse Resp BP Pulse Ox 05/26/19 08:01 97.7 F 68 20 116/56 92 L 05/26/19 04:00 98.0 F 66 20 120/59 93 L 05/25/19 23:43 98.4 F 73 17 119/58 95 05/25/19 19:34 97.9 F 70 18 112/56 94 L 05/25/19 16:27 98.2 F 74 20 118/58 94 L 05/25/19 12:31 98 F 72 20 136/68 95 Pain Assessment - Last Documented Pain Intensity 0 Pain Scale Used [facility] Intake and Output: Intake & Output 05/23/19 05/24/19 05/25/19 05/26/19 11:59 11:59 11:59 11:59 Intake Total 360 2450 2694 1020 Output Total 600 1450 1250 Balance 360 1850 1244 -230 Weight 47.7 kg 47.2 kg 47.9 kg 51.4 kg Lab Results: Lab Results-Last 24 Hours 05/25/19 05/25/19 05/26/19 Range/Units 08:42 08:45 05:10 WBC 5.9 (4.0-10.5) K/mm3 RBC 3.42 L (4.1-5.4) M/mm3 Hgb 10.2 L (12.0-16.0) gm/dl Hct 32.6 L (35-47) % MCV 95.3 (78-100) fl MCH 29.8 (26-32) pg MCHC 31.3 L (32-36) g/dl RDW 13.9 (11.5-14.0) % Plt Count 213 (150-450) K/mm3 MPV 10.7 H (6-9.5) fl Glucose (74-106) mg/dL TSH 3rd Generation 1.980 (0.47-4.68) mIU/L 05/26/19 Range/Units 05:10 WBC (4.0-10.5) K/mm3 RBC (4.1-5.4) M/mm3 Hgb (12.0-16.0) gm/dl Hct (35-47) % MCV (78-100) fl MCH (26-32) pg MCHC (32-36) g/dl RDW (11.5-14.0) % Plt Count (150-450) K/mm3 MPV (6-9.5) fl Glucose OPER[employer] INTELLIGENCE ANALYST (74-106) mg/dL TSH 3rd Generation (0.47-4.68) mIU/L Radiology Exams: Radiology Procedures Category Date Time Status CAROTID BILATERAL [US] Routine Exams 05/26/19 Ordered Ultrasound Unilateral Extremities [VENOUS UNILAT/ Exams 05/26/19 Ordered LIMITED EXTREMIT] [US] Routine Assessment/Plan (1) Vomiting alone Current Visit: Yes Status: Resolved Assessment & Plan: Patient had four days of vomiting prior to admission. This has since resolved with zofran and famotidine. Will continue to monitor. Code(s): R11.10 - VOMITING, UNSPECIFIED (2) Back pain Current Visit: Yes Status: Acute Assessment & Plan: Chronic in nature. Pain is over sacral area. Patient will need to be repositioned to alleviate this back pain. Code(s): M54.9 - DORSALGIA, UNSPECIFIED (3) Difficulty walking Current Visit: Yes Status: Acute Assessment & Plan: PT to work with patient as she has some deconditioning. Will continue to monitor. Plan for patient to go to [place] for continued PT and reconditioning. Code(s): R26.2 - DIFFICULTY IN WALKING, NOT ELSEWHERE CLASSIFIED (4) Hypokalemia Current Visit: Yes Status: Acute Assessment & Plan: Repeat BMP pending. Patient is not on diuretic requiring potassium supplementation. Code(s): E87.6 - HYPOKALEMIA (5) UTI (urinary tract infection) Current Visit: Yes Status: Acute Assessment & Plan: Patient's antibiotic was switched due to culture results. Patient had suprapubic pain on exam. Will continue to monitor. Code(s): N39.0 - URINARY TRACT INFECTION, SITE NOT SPECIFIED (6) Swelling of lower leg Current Visit: Yes Status: Acute Assessment & Plan: 3 month hx of increased R leg swelling. Will get lower extremity doppler. Will continue to monitor for pain and swelling. Code(s): M79.89 - OTHER SPECIFIED SOFT TISSUE DISORDERS (7) Carotid bruit Current Visit: Yes Status: Acute Assessment & Plan: Patient has carotid bruit. No heart murmur detected. Will get US to evaluate Code(s): R09.89 - OTH SYMPTOMS AND SIGNS INVOLVING THE CIRC AND RESP SYSTEMS (8) Cognitive impairment Current Visit: Yes Status: Acute Assessment & Plan: Patient has some mild cognitive impairment and suspected dementia. Patient has had home health at home but has refused to let them in to take care of her. Patient will likley need to go to [place] if patient and family agreeable. Patient also needs to appoint or family needs to appoint POA as patient is not able to make medical decisions for herself. Code(s): R41.89 - OTH SYMPTOMS AND SIGNS W COGNITIVE FUNCTIONS AND AWARENESS
[2019-05-26] MEDS: ROCEPHIN 1 Gm-D5w 50 ml Bag** 1 G/50 ML IVPB IV SCH (10:16)
[2019-05-26] MEDS: ENOXAPARIN SODIUM SQ SCH (10:16)
[2019-05-26] MEDS: Miralax Powder 17GM PACKET PO SCH (10:16)
[2019-05-26] MEDS: Pepcid 20 MG PO SCH ×2 (10:17→21:20)
[2019-05-26] MEDS: SENOKOT 8.6 MG PO SCH (10:17)
[2019-05-26] MEDS: Toprol-Xl 25MG Tablets PO SCH ×2 (10:17→21:20)
[2019-05-26] MEDS: ECOTRIN 81 MG PO SCH (10:17)
[2019-05-26] MEDS: Klor Con 10 MEQ PO SCH (10:17)
[2019-05-26] MEDS: Maxzide-25MG Tablet PO SCH (10:17)
[2019-05-26] MEDS: AMITIZA PO SCH ×2 (10:18→21:19)
[2019-05-26] MEDS: KENALOG 0.1% CREAM 15 GM TP SCH ×2 (10:18→21:22)
[2019-05-26] MEDS: Voltaren GEL TOP PRN (10:18)
[2019-05-26] MEDS: Colace 100 MG PO SCH ×2 (10:18→21:19)
--- NOTE | 2019-05-26 12:02 | XRAY ---
Indication: Right leg swelling. Two-dimensional sonogram and color Doppler imaging of the major venous vessels of the right leg was performed. Comparison: None No thrombus seen in the examined deep venous vessels of the right leg including greater saphenous vein. Veins demonstrate normal compressibility. Venous waveforms are normal with and without augmentation. Impression: Right leg negative for DVT.
--- NOTE | 2019-05-26 12:38 | XRAY ---
Indication: Carotid bruit. Two-dimensional sonogram and color Doppler imaging of the carotid arteries of the neck performed. Comparison: None Examination of the right carotid circulation demonstrates minimal/mild calcified plaquing in the common carotid, bulb, internal carotid, and external carotid arteries. PSV of the CCA is 79 cm/s. PSV of the ICA is 34 cm/s. ICA/CC ratio 0.4. Normal antegrade vertebral artery flow. Examination of the left carotid circulation demonstrates mild/moderate calcified plaquing in the common carotid and bulb with minimal plaquing in the remaining internal and external carotid arteries. PSV of the CCA is 71 cm/s. PSV of the ICA is 160 cm/s. ICA/CCA ratio is 2.2. Normal antegrade vertebral artery flow. Impression: Scattered calcified plaquing, left greater than right as detailed. 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
[2019-05-26] MEDS: Zocor 10MG PO SCH (21:20)
[2019-05-27] MEDS: Miralax Powder 17GM PACKET PO SCH (09:08)
[2019-05-27] MEDS: Toprol-Xl 25MG Tablets PO SCH ×2 (09:08→22:57)
[2019-05-27] MEDS: ECOTRIN 81 MG PO SCH (09:08)
[2019-05-27] MEDS: ROCEPHIN 1 Gm-D5w 50 ml Bag** 1 G/50 ML IVPB IV SCH (09:08)
[2019-05-27] MEDS: ENOXAPARIN SODIUM SQ SCH (09:08)
[2019-05-27] MEDS: Sodium Chloride 0.9% 10 ML FLUSH Syringe IV SCH ×3 (09:08→22:56)
[2019-05-27] MEDS: Colace 100 MG PO SCH ×2 (09:08→22:56)
[2019-05-27] MEDS: Pepcid 20 MG PO SCH ×2 (09:08→22:52)
[2019-05-27] MEDS: Maxzide-25MG Tablet PO SCH (09:08)
[2019-05-27] MEDS: SENOKOT 8.6 MG PO SCH (09:08)
[2019-05-27] MEDS: AMITIZA PO SCH ×2 (09:09→22:52)
[2019-05-27] MEDS: KENALOG 0.1% CREAM 15 GM TP SCH ×2 (09:09→23:01)
--- NOTE | 2019-05-27 10:59 | PCM.NOTE ---
Date and Time: 05/27/19 1057 Subjective Assessment: Pt. doing well this am, complaints of general weak feeling and lower back pain. Vomiting has resolved, agrees with plan to rehab at group home if possible. - Review of Systems Constitutional: No Fever, No Chills Eyes: No Symptoms Ears, Nose, & Throat: No Symptoms Respiratory: No Cough, No Short Of Breath Cardiac: No Chest Pain, No Edema, No Syncope Abdominal/Gastrointestinal: No Abdominal Pain, No Nausea, No Vomiting, No Diarrhea Objective Exam General Appearance: no apparent distress, alert Neurologic Exam: alert Skin Exam: normal color Neck Exam: normal inspection, non-tender, supple, full range of motion Respiratory Exam: normal breath sounds, lungs clear, No respiratory distress Cardiovascular Exam: regular rate/rhythm, normal heart sounds OBJECTIVE DATA Vital Signs: Vital Signs - 24 hr Temp Pulse Resp BP Pulse Ox 05/27/19 07:59 97.9 F 76 18 127/89 95 05/27/19 04:00 98.6 F 66 20 115/44 91 L 05/27/19 00:00 98.8 F 67 16 120/52 92 L 05/26/19 19:37 98.9 F 72 18 105/49 95 05/26/19 15:55 98.3 F 77 18 118/56 94 L 05/26/19 11:54 98.2 F 67 20 124/59 93 L Pain Assessment - Last Documented Pain Intensity 1 Pain Scale Used 0-10 Pain Scale,FLACC Intake and Output: Intake & Output 05/24/19 05/25/19 05/26/19 05/27/19 11:59 11:59 11:59 11:59 Intake Total 2450 2694 1260 2080 Output Total 600 1450 1250 1800 Balance 1850 1244 10 280 Weight 47.2 kg 47.9 kg 51.4 kg 51.6 kg Radiology Exams: Radiology Procedures Category Date Time Status CAROTID BILATERAL [US] Routine Exams 05/26/19 12:14 Completed Ultrasound Unilateral Extremities [VENOUS UNILAT/ Exams 05/26/19 11:49 Completed LIMITED EXTREMIT] [US] Routine Multi-Disciplinary Progress Notes: Multi-Disciplinary Progress Notes 05/27/19 10:55 Case Management Note by Malathi Wong FROM [facility] CALLED AND STATED THEY WOULD ACCEPT THE PATIENT. CHONRR PAPERWORK FAXED TO THEM AT THIS TIME Initialized on 05/27/19 10:55 - END OF NOTE 05/27/19 10:34 Case Management Note by Malathi Wong S/W SON KAUSHIK AT THIS TIME. HE IS AGREEABLE TO REHAB STAY AT [facility]. HE WILL ALSO BE STARTING THE PROCESS OF DEEMING PATIENT INCOMPETENT OF MAKING MEDICAL DECISIONS INCASE PATIENT WANTS TO GO HOME FROM REHAB BEFORE THEY FEEL IT IS SAFE. PASRR PAPERS DONE AND PLACE ON CHART AT THIS TIME Initialized on 05/27/19 10:34 - END OF NOTE 05/27/19 08:37 Case Management Note by Malathi Wong/Chana PATIENT- SHE STILL APPEARS PLEASANTLY CONFUSED IN CONVERSATION. SHE CONTINUES TO BE WILLING TO GO TO [facility]. WILL MAKE CONTACT WITH [facility] TODAY TO SEE WHERE WE ARE WITH THE REFERRAL PROCESS Initialized on 05/27/19 08:37 - END OF NOTE 05/26/19 16:22 Case Management Note by Socorro Alexis SPOKE TO PATIENT IN REGARDS TO REHAB AT DISCHARGE. PT WAS OPEN TO REFERRAL BEING SENT TO [facility]. PT IS DAY 2 INPATIENT. REFERRAL FAXED TO [facility]. CONFIRMATION RECEIVED. THEY WILL REVIEW AT NOTIFY ON 05/27/19. Initialized on 05/26/19 16:22 - END OF NOTE 05/26/19 15:53 Nutrition Note by Blanquita Salmeron F/u Note: Regular diet con't with 75-100% po intake. admission weight 47.7 kg; current weight 51.4 kg. goal #1) of maintaining po intake >=75% met goal #2 of no weight loss met #3) no swallow diff met #4) glu wnl not met. Con' t with all goals and recommend NCS diet. Will con't to monitor and f/u prn. T.CHRISTINA SalmeronCD Initialized on 05/26/19 15:53 - END OF NOTE 05/26/19 11:51 Case Management Note by Socorro Alexis SPOKE TO PT AND SON KAUSHIK AT BEDSIDE. PRESENTED REHAB OPTION TO PATIENT DUE TO INCREASED WEAKNESS, RECENT UTI FAILED O/P. PT CURRENTLY HAS AREA 7 AND 5 HOURS OF HELP AT HOME WITH OUTSIDE AGENCIES. PT COULD USE INPATIENT REHAB DUE TO CURRENT CONDITION. PT WAS OPEN TO DISCUSSION AND WILL DISCUSS WITH SON TODAY. WILL REVISIT LATER TODAY FOR FURTHER CLARIFICATION AND SEE IF REFERRAL IS APPROPRIATE. DISCUSSED INPATIENT STATUS AND IF PATIENT IS ABLE TO MEET INPATIENT CRITERIA FOR 3 DAYS, POSSIBLE SWING BED, V/S GOING TO FACILITY FOR REHAB UNDER MEDICAID IF UNABLE TO MEET 3 DAY CRITERIA FOR INPATIENT. WILL CONTINUE TO FOLLOW CARE UNTIL DISCHARGE. Initialized on 05/26/19 11:51 - END OF NOTE Assessment/Plan (1) Back pain Current Visit: Yes Status: Acute Assessment & Plan: PT evaluation today Code(s): M54.9 - DORSALGIA, UNSPECIFIED (2) Difficulty walking Current Visit: Yes Status: Acute Assessment & Plan: PT evaluation today Code(s): R26.2 - DIFFICULTY IN WALKING, NOT ELSEWHERE CLASSIFIED
[2019-05-27] MEDS: Voltaren GEL TOP PRN (20:30)
[2019-05-27] MEDS: Zocor 10MG PO SCH (22:51)
[2019-05-28] MEDS: Sodium Chloride 0.9% 10 ML FLUSH Syringe IV SCH (05:17)
[2019-05-28 08:36] LABS: Absolute Neutrophil Ct (ANC) 2.71 (1.4-6.9); BASOPHIL % 0.4 % (0.0-0.4); Basophil (Absolute #) 0.02 (0-0.4); Eosinophil % 6.1 % (0.00-5.0); Eosinophil (Absolute #) 0.32 (0-0.5); Hematocrit 34.9 % (35-47); Hemoglobin 10.8 gm/dl (12.0-16.0); Lymphocyte (Absolute #) 1.71 (1.0-4.6); Lymphocytes % 32.6 % (24.0-44.0); Mean Cell Volume 96.4 fl (78-100); Mean Corpuscular Hemoglobin 29.8 pg (26-32); Mean Corpuscular Hgb Concent. 30.9 g/dl (32-36); Monocyte (Absolute #) 0.49 (0.0-1.3); Monocytes % 9.3 % (0.0-12.0); Neutrophil % 51.6 % (36.0-66.0); Platelet Count 232 K/mm3 (150-450); Red Blood Count 3.62 M/mm3 (4.1-5.4); Red Cell Distribution Width 13.9 % (11.5-14.0); White Blood Count 5.3 K/mm3 (4.0-10.5)
[2019-05-28 08:43] LABS: ANION GAP 11.3 MEQ/L (5-15); BLOOD UREA NITROGEN 18 mg/dL (7-17); CHLORIDE 106 mmol/L (98-107); Carbon Dioxide 28 mmol/L (22-30); Creatinine 1 0.88 mg/dL (0.52-1.04); Glucose 104 mg/dL (74-106); Potassium 3.9 mmol/L (3.5-5.1); SODIUM 142 mmol/L (137-145)
[2019-05-28] MEDS: Pepcid 20 MG PO SCH (10:10)
[2019-05-28] MEDS: Maxzide-25MG Tablet PO SCH (10:10)
[2019-05-28] MEDS: Toprol-Xl 25MG Tablets PO SCH (10:10)
[2019-05-28] MEDS: ECOTRIN 81 MG PO SCH (10:10)
[2019-05-28] MEDS: Miralax Powder 17GM PACKET PO SCH (10:10)
[2019-05-28] MEDS: SENOKOT 8.6 MG PO SCH (10:10)
[2019-05-28] MEDS: Colace 100 MG PO SCH (10:10)
[2019-05-28] MEDS: ENOXAPARIN SODIUM SQ SCH (10:10)
[2019-05-28] MEDS: KENALOG 0.1% CREAM 15 GM TP SCH (10:11)
[2019-05-28] MEDS: AMITIZA PO SCH (10:11)
[2019-05-28] MEDS: ROCEPHIN 1 Gm-D5w 50 ml Bag** 1 G/50 ML IVPB IV SCH (10:12)
[2019-05-28 11:50] VITALS: BP 112/66; PULSE 76; O2SAT 96
--- NOTE | 2019-05-28 12:00 | PCM.DS ---
Discharge Summary Date of Admission: 05/25/19 09:14 Date of Discharge: 05/28/19 Admitting Physician: WENCESLAO CASTANEDA Consults: Cardiology Dr Salazar Primary Care Provider: WENCESLAO CASTANEDA Allergies Allergies acetaminophen [From Vicodin] Adverse Reaction (Mild, Verified 04/21/19 16:53) NASUEA cyclobenzaprine Adverse Reaction (Mild, Verified 04/21/19 16:53) Nausea diazepam [From Valium] Adverse Reaction (Mild, Verified 04/21/19 16:53) Nausea hydrocodone [From Vicodin] Adverse Reaction (Mild, Verified 04/21/19 16:53) NASUEA sulfamethoxazole [From Bactrim] Adverse Reaction (Mild, Verified 04/21/19 16:53) Nausea trimethoprim [From Bactrim] Adverse Reaction (Mild, Verified 04/21/19 16:53) Nausea Hospital Summary - Hospital Course Hospital Course: 88 yr old female that was brought in by EMS for a reported 4 day history of nausea/vomiting. Patient reportedly Patient arrive per ambulance. transfer to [facility] with assist of 3. Patient initially was alert, oriented to person and able to give the date and year. Ems states that pt has a neighbor that checks on her frequently and states that this level of confusion is patient's baseline. Patient reports that she became very weak along with the nausea/ vomiting. Patient - Vitals & Intake/Output Vital Signs: Vital Signs Temperature 97.6 F 05/28/19 08:11 Pulse Rate 71 05/28/19 08:11 Respiratory Rate 16 05/28/19 08:11 Blood Pressure 143/65 05/28/19 08:11 O2 Sat by Pulse Oximetry 93 L 05/28/19 08:11 Intake & Output: Intake & Output 05/25/19 05/26/19 05/27/19 05/28/19 11:59 11:59 11:59 11:59 Intake Total 2694 1260 2080 1000 Output Total 1450 1250 1800 100 Balance 1244 10 280 900 Weight 47.9 kg 51.4 kg 51.6 kg 52.9 kg - Lab Result Diagrams: 05/28/19 08:30 05/28/19 08:30 Lab Results-Last 24 Hrs: Lab Results-Last 24 Hours 05/28/19 05/28/19 Range/Units 08:30 08:30 WBC 5.3 (4.0-10.5) K/mm3 RBC 3.62 L (4.1-5.4) M/mm3 Hgb 10.8 L (12.0-16.0) gm/dl Hct 34.9 L (35-47) % MCV 96.4 (78-100) fl MCH 29.8 (26-32) pg MCHC 30.9 L (32-36) g/dl RDW 13.9 (11.5-14.0) % Plt Count 232 (150-450) K/mm3 MPV 11.0 H (6-9.5) fl Gran % 51.6 (36.0-66.0) % Eos # (Auto) 0.32 (0-0.5) Absolute Lymphs (auto) 1.71 (1.0-4.6) Absolute Monos (auto) 0.49 (0.0-1.3) Lymphocytes % 32.6 (24.0-44.0) % Monocytes % 9.3 (0.0-12.0) % Eosinophils % 6.1 H (0.00-5.0) % Basophils % 0.4 (0.0-0.4) % Absolute Granulocytes 2.71 (1.4-6.9) Basophils # 0.02 (0-0.4) Sodium 142 (137-145) mmol/L Potassium 3.9 (3.5-5.1) mmol/L Chloride 106 (98-107) mmol/L Carbon Dioxide 28 (22-30) mmol/L Anion Gap 11.3 (5-15) MEQ/L BUN 18 H (7-17) mg/dL Creatinine 0.88 (0.52-1.04) mg/dL Estimated GFR > 60.0 ML/MIN Glucose 104 (74-106) mg/dL Calcium 9.0 (8.4-10.2) mg/dL Micro Results-Entire Visit: Microbiology 05/23/19 14:15 Urine Culture - Final Clean Catch Midstream Providencia Rettgeri - Radiology Exams Ordered Rad Exams-Entire Visit: Radiology Procedures Category Date Time Status CAROTID BILATERAL [US] Routine Exams 05/26/19 12:14 Completed Ultrasound Unilateral Extremities [VENOUS UNILAT/ Exams 05/26/19 11:49 Completed LIMITED EXTREMIT] [US] Routine - Procedures and Test Procedures and Tests throughout Hospitalization: Therapy Orders & Screens 05/23/19 11:09 Modified Barium Swallow Eval .as ordered Comment: Physician Instructions: Reason For Exam: 05/27/19 10:56 PT Eval & Treat ( Order) ROUTINE Reason for Eval:: back pain, general weakness Diagnosis: Vomiting, Elevated Troponin Discharge Exam General Appearance: no apparent distress, thin Neurologic Exam: alert, oriented x 3, cooperative, normal mood/affect Eye Exam: eyes nml inspection Ears, Nose, Throat Exam: other (Patient has hx of dry lips) Neck Exam: carotid bruit (R sided carotid bruit) Respiratory Exam: normal breath sounds, No chest tenderness, No lungs clear, No respiratory distress, No diminished breath sounds Cardiovascular Exam: regular rate/rhythm, normal heart sounds, No murmur, No friction rub, No gallop Gastrointestinal/Abdomen Exam: soft, normal bowel sounds, No tenderness, No distention Back Exam: other (Tenderness over sacrum) Extremity Exam: pedal edema, swelling, other (Swelling R lower extremity and erythema around R ankle) Skin Exam: normal color, warm, dry, other (Patient has a patch of scaly skin which appears to be actinic keratosis on R side temporal area.) Final Diagnosis/Problem List - Final Discharge Diagnosis/Problem (1) Vomiting alone Current Visit: Yes Status: Resolved Assessment & Plan: Resolved. Patient had some nausea and vomiting 4 days prior to hospital admission. Patient was likely dehydrated. Patient was treated with antiemetics and IV fluids and symptoms resolved soon after admission. Patient has not had any episodes of vomiting since admission and denies any abdominal pain. Code(s): R11.10 - VOMITING, UNSPECIFIED (2) Back pain Current Visit: Yes Status: Acute Assessment & Plan: This pain is located on sacrum. Patient will need to continue with frequent repositioning to alleviate pressure near sacrum. Code(s): M54.9 - DORSALGIA, UNSPECIFIED (3) Difficulty walking Current Visit: Yes Status: Acute Assessment & Plan: Patient has had difficulty walking likely related to acute generalized weakness and deconditioning. Patient has had PT and OT in the hospital and will need to continue with this therapy at long-term. Code(s): R26.2 - DIFFICULTY IN WALKING, NOT ELSEWHERE CLASSIFIED (4) Hypokalemia Current Visit: Yes Status: Acute Assessment & Plan: Patient's potassium was 3.9 today which is wnl. Hypokalemia may have been due to her acute GI illness. Patient may need routine labs in the future to re- evaluate Code(s): E87.6 - HYPOKALEMIA (5) UTI (urinary tract infection) Current Visit: Yes Status: Acute Assessment & Plan: Patient was found to have acute UTI on admission. Patient was initially treated with antibiotics and antibiotics were changed following culture results. Patient 's course completed after today. Consider repeat ua to see if infection is resolved. Code(s): N39.0 - URINARY TRACT INFECTION, SITE NOT SPECIFIED (6) Swelling of lower leg Current Visit: Yes Status: Acute Assessment & Plan: Doppler was neg for R lower extremity DVT. Code(s): M79.89 - OTHER SPECIFIED SOFT TISSUE DISORDERS (7) Carotid bruit Current Visit: Yes Status: Acute Assessment & Plan: Cardiology consult to address L sided carotid stenosis. Will follow up on recs. Patient's age and comorbidities may prevent her from being a surgical candidate. Code(s): R09.89 - OTH SYMPTOMS AND SIGNS INVOLVING THE CIRC AND RESP SYSTEMS (8) Cognitive impairment Current Visit: Yes Status: Acute Assessment & Plan: Patient has mild dementia. She was aware of her surroundings and new the month and year. She was unable to recall who the president was. Can consider medication like namenda for her dementia. Code(s): R41.89 - OTH SYMPTOMS AND SIGNS W COGNITIVE FUNCTIONS AND AWARENESS - Discharge Disposition: Skilled Care @ [facility] Condition: Stable Prescriptions: New Simvastatin 10 mg [Zocor 10MG] 10 mg PO HS tablet Acetaminophen 325 mg [Tylenol 325 mg] 325 mg PO Q4H PRN PRN tablet PRN Reason: Pain, Fever, Headache Continue Meclizine HCl 25 mg [Antivert 25 mg] 25 mg PO TID PRN PRN Reason: Dizziness Atorvastatin Calcium [Lipitor] 10 mg PO HS Nitroglycerin 0.4 mg Tablet [Nitrostat 0.4 MG Tablet] 0.4 mg SL UD PRN PRN Reason: Chest Pain Metoprolol Succinate 25 mg Xl* [Toprol-Xl 25MG Tablets] 12.5 mg PO BID Aspirin 81 gm Chew [Baby Aspirin 81 mg Chew] 81 mg PO DAILY Triamterene/Hydrochlorothiazid [Triamterene-Hctz 37.5-25 mg Tb] 1 tab PO UD Docusate Sodium 100 mg [Colace 100 MG] 100 mg PO BID Diclofenac Sodium [Voltaren] 1 gel TOP TID PRN PRN PRN Reason: Pain Polyethylene Glycol 3350 [Clearlax] 17 gm PO DAILY Lubiprostone [Amitiza] 24 mcg PO BID Triamcinolone 0.1% Cream [Kenalog 0.1% Cream 15 gm] 30 gm TP BID Sennosides [Kylah-Rebekah] 8.6 mg PO DAILY Additional Instructions: Patient can have a regular diet She will need to have a hbga1c drawn in the next week and if it is elevated she needs to be considered for diabetic diet Patient to get PT and OT Will need to follow up on Dr Julieta mendenhall Patient will need to ambulate with assistance until she has been cleared by PT Patient will need to have a follow up appt with PCP once discharged from [place] Recommend cryotherapy as outpatient for scaly patch R temporal area suspicious for actinic keratosis. May also need biopsy PCP can address if they want to start patient on nemeda Repeat UA in 1 week. Repeat BMP in one week Patient can be discharged once evaluated by Dr Salazar Follow up with: WENCESLAO CASTANEDA [Primary Care Provider] - 1 Week
--- NOTE | 2019-05-28 13:38 | CONS ---
CONSULT DATE: 05/27/2019 BRIEF HISTORY: This is an 88 year-old female who was seen because of abnormal carotid Doppler study, history of vomiting and also mild troponin leak. The patient was brought in on 05/23/2019 complaining of right sided chest pain. She also had some episodes of vomiting that occurred for about four hours. At the time of examination she was chest pain free. Her troponin I was mildly elevated at 0.04 which trended down. The patient is known to have coronary artery disease, had previous coronary bypass surgery and has done reasonably well. She had a carotid ultrasound which showed narrowing of the left side of about 50 to 69%. She has had no transient ischemic attack symptoms. CARDIAC RISK FACTORS: She has previous history of diabetes. She has hypertension. She has hyperlipidemia. PAST SURGICAL HISTORY: Coronary bypass surgery done about 20 years ago. MEDICATIONS: Her home medications include aspirin, atorvastatin, metoprolol, nitroglycerin sublingual, Maxzide, Colace. 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 No visual disturbance. RESPIRATORY: No chronic cough. GI: No history of peptic ulcer or colon disorder. : Negative for dysuria or hematuria. PERIPHERAL VASCULAR: No history of DVT or claudication. SOCIAL HISTORY: She walks around with a walker. She has no significant alcohol intake. She is going to be transferred to a fdc as she is unable to care for herself. PHYSICAL EXAMINATION: Blood pressure is 112/66, heart rate 81, respirations about 14. GENERAL: The patient is an elderly female who is alert, oriented, conversant who is not in any form of distress. HEENT: Slightly pale conjunctivae. NECK: No significant JVD. There is a right carotid bruit. CHEST: The breath sounds are harsh. There is a well healed sternotomy scar. CARDIAC: Heart tones are within normal. The rhythm is regular. There is a grade 2/6 mid systolic murmur. ABDOMEN: Soft with normal bowel sounds. EXTREMITIES: No significant edema with decreased distal pulses. LAB DATA AND DIAGNOSTIC TESTS: The EKG done on 05/23/2019 shows normal sinus rhythm with first degree AV block, nonspecific ST-T changes. IMPRESSION: A patient with: 1) Right sided chest pain somewhat atypical angina. There is significant leak of troponin. Will continue with medical therapy and modification of cardiac risk factors. 2) Carotid artery disease: She has some moderate disease involving the left internal carotid artery but she has had no neurological symptoms, will continue to manage this medically. The patient will be seen in the clinic for a follow up.
== END 2019-05-28 15:20 | DRG 392 ==
LOC: ED 01:53 → MED SURG 07:14 → OBSVTOIN 05-25 09:14
PROVIDERS: ADMIT Family Medicine; ATTEND Family Medicine
DX: R11.2 Nausea with vomiting, unspecified (principal); N39.0 Urinary tract infection, site not specified; R10.13 Epigastric pain; E11.9 Type 2 diabetes mellitus without complications; I10 Essential (primary) hypertension; M54.9 Dorsalgia, unspecified; R26.2 Difficulty in walking, not elsewhere classified; E87.6 Hypokalemia; E78.5 Hyperlipidemia, unspecified; M79.89 Other specified soft tissue disorders; R09.89 Other specified symptoms and signs involving the circulatory and respiratory systems; F03.90 Unspecified dementia, unspecified severity, without behavioral disturbance, psychotic disturbance, mood disturbance, and anxiety; R13.10 Dysphagia, unspecified; R79.89 Other specified abnormal findings of blood chemistry; I25.10 Atherosclerotic heart disease of native coronary artery without angina pectoris; I25.2 Old myocardial infarction; Z95.1 Presence of aortocoronary bypass graft; Z79.899 Other long term (current) drug therapy
CPT/HCPCS: 36000; 36415; 71045; 74176; 74230; 80048; 80053; 81001; 82150; 83605; 83880; 84443; 84484; 85025; 85027; 85610; 87077; 87086; 87186; 92611; 93005; 93880; 93971; 96360; 96374; 97110; 97161; 97530; 99285; G0378; A6457; J0696; J1200; J1650; J1956; A9270-GY

== ENCOUNTER 2019-06-18 08:25 | Day surgery (SDC) | payer MEDICARE ==
[2019-06-18] MEDS ORDERED: Xylocaine-Mpf 2% 5 Ml Vial IJ ONE (08:26)
[2019-06-18] MEDS ORDERED: Depo-Medrol 40 MG/ML IM ONE (08:26)
[2019-06-18] MEDS ORDERED: Ketamine HCl 50 MG/ML ONE (09:18)
[2019-06-18] MEDS ORDERED: DIPRIVAN 200 MG/20 ML IV ONE (09:18)
--- NOTE | 2019-06-18 12:23 | XRAY ---
Indication: Bilateral L3-S1 MBB. Intraoperative fluoroscopy was provided for 16 seconds. Single digital spot image submitted for interpretation demonstrates posterior needle tips projecting over the expected course of the left and right L3-S1 nerve roots. Correlate with intraoperative findings/report.
--- NOTE | 2019-06-18 12:36 | XRAY ---
16 seconds fluoroscopy time in surgery for bilateral L3-S1 MBB.
[2019-06-18] MEDS ORDERED: Lactated Ringers 1,000 ML IV ONE (17:02)
== END 2019-06-18 10:20 | disposition home or self-care (01) ==
LOC: SDC-PAIN 08:25 → SDC 08:25 → SDC-PAIN 10:20
PROVIDERS: ATTEND Psychiatry & Neurology Pain Medicine
DX: M47.816 Spondylosis without myelopathy or radiculopathy, lumbar region (principal); I25.10 Atherosclerotic heart disease of native coronary artery without angina pectoris; R32 Unspecified urinary incontinence; I25.2 Old myocardial infarction
CPT/HCPCS: 64493; 64494; 64495; 72020; 77002; J1030; J2704

== ENCOUNTER 2019-07-08 18:34 | Emergency (ER) | payer MEDICARE ==
[2019-07-08] MEDS ORDERED: MOTRIN 400 MG ONE (19:06)
--- NOTE | 2019-07-08 19:08 | ERPHSYRPT ---
- History of Present Illness Time Seen by Provider: 07/08/19 18:45 Source: patient, EMS, other ([facility]) Exam Limitations: no limitations Physician History: as per retirement, patient's blood pressure was low today. Patient states that she fell 4 days ago and hurt her right middle back. It has been hurting since then. The blood pressure normal when EMS reached that. Patient says that the multiple resident at the retirement are having upper respiratory symptoms. She is also having a cough and chest congestion. Timing/Duration: day(s) (4) Severity: moderate Modifying Factors: Improves With: movement Associated Symptoms: cough, No nausea, No vomiting, No abdominal pain, No shortness of breath, No heartburn, No diaphoresis, No chills, No chest pain, No fever Allergies/Adverse Reactions: acetaminophen [From Vicodin] Adverse Reaction (Mild, Verified 04/21/19 16:53) NASUEA cyclobenzaprine Adverse Reaction (Mild, Verified 04/21/19 16:53) Nausea diazepam [From Valium] Adverse Reaction (Mild, Verified 04/21/19 16:53) Nausea hydrocodone [From Vicodin] Adverse Reaction (Mild, Verified 04/21/19 16:53) NASUEA sulfamethoxazole [From Bactrim] Adverse Reaction (Mild, Verified 04/21/19 16:53) Nausea trimethoprim [From Bactrim] Adverse Reaction (Mild, Verified 04/21/19 16:53) Nausea Home Medications: Aspirin 81 gm Chew [Baby Aspirin 81 mg Chew] 81 mg PO DAILY 05/05/16 [ History] Atorvastatin Calcium [Lipitor] 10 mg PO HS 05/05/16 [History] Meclizine HCl 25 mg [Antivert 25 mg] 25 mg PO TID PRN 05/05/16 [History] Metoprolol Succinate 25 mg Xl* [Toprol-Xl 25MG Tablets] 12.5 mg PO BID [History] Nitroglycerin 0.4 mg Tablet [Nitrostat 0.4 MG Tablet] 0.4 mg SL UD PRN [History] Diclofenac Sodium [Voltaren] 1 gel TOP TID PRN PRN 01/14/19 [History] Docusate Sodium 100 mg [Colace 100 MG] 100 mg PO BID 01/14/19 [History] Triamterene/Hydrochlorothiazid [Triamterene-Hctz 37.5-25 mg Tb] 1 tab PO UD 03/27 [History] Lubiprostone [Amitiza] 24 mcg PO BID 05/23/19 [History] Polyethylene Glycol 3350 [Clearlax] 17 gm PO DAILY 05/23/19 [History] Sennosides [Kylah-Rebekah] 8.6 mg PO DAILY 05/23/19 [History] Triamcinolone 0.1% Cream [Kenalog 0.1% Cream 15 gm] 30 gm TP BID 05/23/19 [History] Hx Tetanus, Diphtheria Vaccination/Date Given: No Hx Influenza Vaccination/Date Given: Yes Hx Pneumococcal Vaccination/Date Given: Yes - Review of Systems Constitutional: No Fever, No Chills Eyes: No Symptoms Ears, Nose, & Throat: No Symptoms Respiratory: Cough, No Dyspnea Cardiac: No Chest Pain, No Edema, No Syncope Abdominal/Gastrointestinal: No Abdominal Pain, No Nausea, No Vomiting, No Diarrhea Genitourinary Symptoms: No Dysuria Musculoskeletal: Back Pain, No Neck Pain Skin: No Cellulitis, No Decubiti, No Rash Neurological: No Dizziness, No Focal Weakness, No Sensory Changes Psychological: No Symptoms Endocrine: No Symptoms All Other Systems: Reviewed and Negative - Past Medical History Pertinent Past Medical History: Yes Neurological History: No Pertinent History ENT History: No Pertinent History Cardiac History: Hypertension, Myocardial Infarction (NM) Respiratory History: No Pertinent History Endocrine Medical History: Diabetes Type II Musculoskeletal History: Arthritis, Degenerative Disk Disease GI Medical History: Other History: Other Psycho-Social History: No Pertinent History Female Reproductive Disorders: No Pertinent History Other Medical History: hx of possible abd mass- poor historian, denies being diabetic, medical record states otherwise - Past Surgical History Past Surgical History: Yes Neuro Surgical History: No Pertinent History Cardiac: CABG Respiratory: No Pertinent History Gastrointestinal: No Pertinent History Genitourinary: No Pertinent History Musculoskeletal: No Pertinent History Female Surgical History: No Pertinent History - Social History Smoking Status: Former smoker Exposure to second hand smoke: No Drug Use: none Patient Lives Alone: Yes - Nursing Vital Signs Nursing Vital Signs: Initial Vital Signs Pulse Rate 67 07/08/19 20:24 Respiratory Rate 18 07/08/19 20:24 O2 Sat by Pulse Oximetry 96 07/08/19 20:24 - Physical Exam General Appearance: no apparent distress, alert Eye Exam: PERRL/EOMI, eyes nml inspection Ears, Nose, Throat Exam: normal ENT inspection, TMs normal, pharynx normal, moist mucous membranes Neck Exam: normal inspection, non-tender, supple, full range of motion Respiratory Exam: normal breath sounds, lungs clear, No respiratory distress Cardiovascular Exam: regular rate/rhythm, normal heart sounds, normal peripheral pulses Gastrointestinal/Abdomen Exam: soft, normal bowel sounds, No tenderness, No mass Back Exam: normal inspection, normal range of motion, No CVA tenderness, No vertebral tenderness Extremity Exam: normal inspection, normal range of motion, pelvis stable, other (Kyphoscoliosis) Neurologic Exam: alert, oriented x 3, cooperative, normal mood/affect, nml cerebellar function, nml station & gait, sensation nml, No motor deficits Skin Exam: normal color, warm, dry, No rash Lymphatic Exam: No adenopathy SpO2 Interpretation: normal O2 Delivery: Room Air - Course Nursing assessment & vital signs reviewed: Yes - Radiology Exams Chest X-ray Interpretation: Interpreted by me, Negative - CT Exams Abdomen/Pelvis CT Interpretation: Other (CT T spine - nothing acute) Ordered Tests: Active Orders 24 hr Category Date Time Status CHEST 2 VIEWS (PA AND LAT) Stat Exams 07/08/19 19:33 Taken THORACIC SPINE W/O CONTRAST [CT] Stat Exams 07/08/19 18:58 Taken Respiratory Therapy Assessment DAILY RT 07/08/19 20:24 Active Medication Summary Discontinued Medications Generic Name Dose Route Start Last Admin Trade Name Oneilq PRN Reason Stop Dose Admin Albuterol/Ipratropium 3 ml 07/08/19 20:09 07/08/19 20:15 Duoneb 0.5-3 Mg/3 Ml Neb IH 07/08/19 20:10 3 ml STAT ONE Administration Albuterol/Ipratropium Confirm 07/08/19 20:11 Duoneb 0.5-3 Mg/3 Ml Neb Administered 07/08/19 20:12 Dose 3 ml IH .STK-MED ONE Ibuprofen 400 mg 07/08/19 18:59 07/08/19 19:09 Motrin 400 Mg PO 12/31/19 19:00 400 mg STAT ONE Administration Ibuprofen Confirm 07/08/19 19:06 Motrin 400 Mg Administered 07/08/19 19:07 Dose 400 mg .ROUTE .STK-MED ONE - Progress Progress: improved Progress Note: 07/08/19 20:34 No acute Life or limb threatening condition Counseled pt/family regarding: lab results, diagnosis, need for follow-up, rad results - Departure Departure Disposition: Home Clinical Impression: Back pain Qualifiers: Back pain location: thoracic back pain Chronicity: chronic Back pain laterality : bilateral Qualified Code(s): M54.6 - Pain in thoracic spine; G89.29 - Other chronic pain Acute bronchitis Qualifiers: Bronchitis organism: unspecified organism Qualified Code(s): J20.9 - Acute bronchitis, unspecified Condition: Good Critical Care Time: No Referrals: MATTHEW WU [Primary Care Provider] - 07/10/19 Instructions: Acute Bronchitis, Upper Back Pain (DC) Prescriptions: Azithromycin 250 mg [Zithromax 250 MG TABLET] 250 mg PO ZPACK #6 tablet
[2019-07-08] MEDS: MOTRIN 400 MG PO ONE (19:09)
[2019-07-08] MEDS ORDERED: DUONEB 0.5-3 MG/3 ml Neb IH ONE (20:11)
[2019-07-08] MEDS: DUONEB 0.5-3 MG/3 ml Neb IH ONE (20:15)
[2019-07-08 20:36] LABS: INFLUENZA A NEGATIVE (NEGATIVE); INFLUENZA B NEGATIVE (NEGATIVE); RESPIRATORY SYNCTIAL VIRUS NEGATIVE (Negative)
[2019-07-08 22:20] VITALS: BP 90/42; PULSE 71; O2SAT 95
--- NOTE | 2019-07-09 09:25 | XRAY ---
Indication: Pain following fall. Comparison: May 23, 2019. PA/lateral chest unchanged again hyperinflated and clear. Heart is not enlarged again with previous CABG. Bony thorax intact again with mild osteopenia, degenerative changes, and MRI proven multilevel remote thoracolumbar endplate deformities. Impression: Stable nonacute hyperinflated chest with chronic features.
--- NOTE | 2019-07-09 09:33 | XRAY ---
Indication: Upper thoracic pain following fall. Multiple contiguous axial images obtained through the thoracic spine. Sagittal and coronal reformatted images obtained. Comparison: None. Osseous structures demineralized consistent with patient's age. Multilevel bridging/non-bridging endplate osteophytes. T12-L2 segments demonstrates concave endplate deformities unchanged compared to CT lumbar spine May 05, 2016 and favored to be remote fractures versus Schmorl nodes. No acute fracture, suspicious bony lesions, or spinal canal stenosis. Sagittal and coronal reformatted images demonstrate normal thoracic kyphosis and mild levoscoliosis centered at L1. No acute compression fracture or subluxation. The visualized noncontrasted soft tissues demonstrates extensive scattered vascular calcifications, mild pulmonary emphysema, pulmonary/mediastinal/hilar calcified granulomas, and small hiatal hernia. There is also a 2.2 cm partially calcified left adrenal gland mass unchanged with respect to previous CT lumbar spine and favored to be benign given stability over the years. Impression: 1. Negative acute fracture/subluxation. 2. Osteopenia, multilevel degenerative changes, and remote T12-L2 endplate concave deformities. 3. Incidental pulmonary emphysema, extensive arteriosclerotic calcifications, small hiatal hernia, evidence for old granulomatous disease, and benign partially calcified left adrenal gland mass. CTDI 12.28
== END 2019-07-08 22:18 ==
LOC: ED 18:34
DX: M54.6 Pain in thoracic spine (principal); G89.29 Other chronic pain; J20.9 Acute bronchitis, unspecified; W19.XXXS Unspecified fall, sequela; I10 Essential (primary) hypertension; E11.9 Type 2 diabetes mellitus without complications; M19.90 Unspecified osteoarthritis, unspecified site; Z79.899 Other long term (current) drug therapy; I25.2 Old myocardial infarction
CPT/HCPCS: 71046; 72128; 87631; 87651; 94640; 99284; A9270-GY

== ENCOUNTER 2019-08-27 09:36 | Day surgery (SDC) | payer MEDICARE ==
[2019-08-27] MEDS ORDERED: Marcaine 0.5% SDV 10 ML IM ONE (09:37)
[2019-08-27] MEDS ORDERED: Depo-Medrol 40 MG/ML IM ONE (09:37)
[2019-08-27] MEDS ORDERED: Xylocaine 1% Vial 30 ML PF IJ ONE (09:37)
[2019-08-27] MEDS ORDERED: DIPRIVAN 200 MG/20 ML IV ONE (10:21)
[2019-08-27] MEDS ORDERED: Ketamine HCl 50 MG/ML ONE (10:22)
--- NOTE | 2019-08-27 11:26 | XRAY ---
Indication: Bilateral L3-S1 MBB. Intraoperative fluoroscopy was provided for 14 seconds. Single digital spot image submitted for interpretation demonstrates posterior needle tips projecting over the expected course of the left and right L3-S1 nerve root. Correlate with intraoperative findings/report.
--- NOTE | 2019-08-27 11:36 | XRAY ---
14 seconds fluoroscopy time in surgery for bilateral L3-S1 MBB.
[2019-08-27] MEDS ORDERED: Lactated Ringers 1,000 ML IV ONE (14:02)
== END 2019-08-27 11:02 | disposition home or self-care (01) ==
LOC: SDC-PAIN 09:36
PROVIDERS: ATTEND Psychiatry & Neurology Pain Medicine
DX: M47.816 Spondylosis without myelopathy or radiculopathy, lumbar region (principal); Z79.899 Other long term (current) drug therapy
CPT/HCPCS: 64493; 64494; 64495; 72020; 77002; J1030; J2001; J2704

== ENCOUNTER 2020-07-20 12:52 | Inpatient (IN) | payer MEDICARE ==
--- NOTE | 2020-07-20 13:05 | ERPHSYRPT ---
- History of Present Illness Time Seen by Provider: 07/20/20 13:02 Source: patient, EMS Exam Limitations: clinical condition Physician History: This is an 89-year-old white female who is a resident of [facility] and is on hospice whose COVID-19 test results returned today and it is positive. Per their policy, the patient is to be transferred to a facility in [facility]. However, the patient is hypoxic has a MRSA positive chronic sacral decubitus ulcer present. She is a DO NOT RESUSCITATE patient. The concern in this patient is that she may not survive transfer from [facility] to [facility]. Therefore, the patient was brought to the emergency department for evaluation and management of her COVID-19 symptoms/diagnosis as well as her sacral decubitus ulcer. Dr. Valle, who is covering for Dr. Benjamin who happens to be the [facility] physician, contacted me prior to the patient arrival. We discussed limited lab results and culture of her sacral decubitus ulcer and placement of her into the Covid 19 unit. Timing/Duration: today Severity: mild Associated Symptoms: denies symptoms Allergies/Adverse Reactions: acetaminophen [From Vicodin] Adverse Reaction (Mild, Verified 07/20/20 13:44) NASUEA cyclobenzaprine Adverse Reaction (Mild, Verified 07/20/20 13:44) Nausea diazepam [From Valium] Adverse Reaction (Mild, Verified 07/20/20 13:44) Nausea hydrocodone [From Vicodin] Adverse Reaction (Mild, Verified 07/20/20 13:44) NASUEA sulfamethoxazole [From Bactrim] Adverse Reaction (Mild, Verified 07/20/20 13:44) Nausea trimethoprim [From Bactrim] Adverse Reaction (Mild, Verified 07/20/20 13:44) Nausea Home Medications: No Reportable Medications [No Reported Medications] 07/20/20 [History] Hx Tetanus, Diphtheria Vaccination/Date Given: No Hx Influenza Vaccination/Date Given: Yes Hx Pneumococcal Vaccination/Date Given: Yes Travel Risk - International Travel Have you traveled outside of the country in past 3 weeks: No - Coronavirus Screening Are you exhibiting any of the following symptoms?: No Close contact with a COVID-19 positive Pt in past 14-21 Days: Yes - Review of Systems Constitutional: Lethargy, Weakness Eyes: No Symptoms Ears, Nose, & Throat: No Symptoms Respiratory: No Symptoms Cardiac: No Symptoms Abdominal/Gastrointestinal: No Symptoms Genitourinary Symptoms: No Symptoms Musculoskeletal: No Symptoms Skin: No Symptoms Neurological: No Symptoms Psychological: No Symptoms Endocrine: No Symptoms Hematologic/Lymphatic: No Symptoms Immunological/Allergic: No Symptoms All Other Systems: Reviewed and Negative - Past Medical History Pertinent Past Medical History: Yes Neurological History: No Pertinent History ENT History: No Pertinent History Cardiac History: Hypertension, Myocardial Infarction (AL) Respiratory History: No Pertinent History Endocrine Medical History: Diabetes Type II Musculoskeletal History: Arthritis, Degenerative Disk Disease GI Medical History: Other History: Other Psycho-Social History: No Pertinent History Female Reproductive Disorders: No Pertinent History Other Medical History: hx of possible abd mass- poor historian, denies being diabetic, medical record states otherwise - Past Surgical History Past Surgical History: Yes Neuro Surgical History: No Pertinent History Cardiac: CABG Respiratory: No Pertinent History Gastrointestinal: No Pertinent History Genitourinary: No Pertinent History Musculoskeletal: No Pertinent History Female Surgical History: No Pertinent History - Social History Smoking Status: Former smoker Exposure to second hand smoke: No Drug Use: none Patient Lives Alone: Yes - Nursing Vital Signs Nursing Vital Signs: Initial Vital Signs Temperature 98.9 F 07/20/20 13:47 Pulse Rate 91 H 07/20/20 13:47 Respiratory Rate 35 H 07/20/20 13:47 Blood Pressure 113/74 07/20/20 13:47 O2 Sat by Pulse Oximetry 91 L 07/20/20 13:47 Pain Scale Pain Intensity 0 - Physical Exam General Appearance: lethargy, cachetic Eye Exam: PERRL/EOMI, eyes nml inspection Ears, Nose, Throat Exam: normal ENT inspection, moist mucous membranes Neck Exam: normal inspection, non-tender, supple, full range of motion Respiratory Exam: normal breath sounds, lungs clear, airway intact, No chest te nderness, No respiratory distress Cardiovascular Exam: regular rate/rhythm, normal heart sounds, normal peripheral pulses Gastrointestinal/Abdomen Exam: soft, normal bowel sounds, No tenderness Pelvic Exam: not done Rectal Exam: not done Back Exam: normal inspection, normal range of motion, No CVA tenderness, No vertebral tenderness Extremity Exam: normal inspection, normal range of motion, pelvis stable Neurologic Exam: confusion, other (Lethargic) Skin Exam: decubitus (Sacral and superficial bilateral hip) Lymphatic Exam: No adenopathy SpO2 Interpretation: normal O2 Delivery: Room Air - Course Nursing assessment & vital signs reviewed: Yes Ordered Tests: Active Orders 24 hr Category Date Time Status IV Insertion STAT Care 07/20/20 13:31 Active Wound Care STAT Care 07/20/20 13:29 Active BLOOD CULTURE Stat Lab 07/20/20 13:31 Ordered CBC W DIFF Stat Lab 07/20/20 13:31 Ordered CMP Stat Lab 07/20/20 13:31 Ordered CULTURE,WOUND Stat Lab 07/20/20 13:59 Ordered Lactic Acid Stat Lab 07/20/20 14:20 Completed Transfer Order Routine Transfer 07/20/20 Ordered Medication Summary Generic Name Dose Route Start Last Admin Trade Name Freq PRN Reason Stop Dose Admin Sodium Chloride 1,000 mls @ 50 mls/hr 07/20/20 13:45 Sodium Chloride 0.9% 1000 Ml IV 08/19/20 13:44 .Q20H CARLINE Discontinued Medications Generic Name Dose Route Start Last Admin Trade Name Freq PRN Reason Stop Dose Admin Daptomycin 150 mg 07/20/20 13:37 Daptomycin 500 Mg Injection IV 07/20/20 13:38 STAT ONE Lab/Rad Data: Laboratory Results 07/20/20 Range/Units 14:20 Lactic Acid 1.8 (0.4-2.0) - Progress Progress: unchanged, re-examined Progress Note: 07/20/20 13:09 Medical decision making: Although this patient is a DO NOT RESUSCITATE patient, I spoke with Dr. Yeboah, our COVID-19 unit physician. He agrees the patient should come into the hospital. We will culture the decubitus ulcer and place the patient on antibiotics. She will remain a DO NOT RESUSCITATE patient but we will go ahead and proceed with Decadron and remdesivir. We will admit her to the COVID-19 unit. Discussed with .: Christian, Other (Jae Yeboah) Counseled pt/family regarding: lab results, diagnosis - Departure Departure Disposition: In-patient Admission Clinical Impression: COVID-19 virus infection, Decubitus ulcer Condition: Serious Critical Care Time: No Referrals: [facility] [NON-STAFF PHY W/O PRIVILEGES] -
[2020-07-20] MEDS ORDERED: Daptomycin 500 MG Injection IV ONE (13:37)
[2020-07-20] MEDS ORDERED: Sodium Chloride 0.9% 1000 ML 1,000 ML IV SCH ×2 (13:45→15:18)
[2020-07-20] MEDS ORDERED: Sodium Chloride 0.9% 500 ML 0 ML IV ONE (14:28)
[2020-07-20 14:30] LABS: Hematocrit 47.4 % (35-47); Hemoglobin 13.8 gm/dl (12.0-16.0); Mean Cell Volume 89.3 fl (78-100); Mean Corpuscular Hgb Concent. 29.1 g/dl (32-36); Mean Platelet Volume 11.6 fl (7.5-11.0); Platelet Count 521 K/mm3 (150-450); Red Blood Count 5.31 M/mm3 (4.1-5.4); White Blood Count 12.7 K/mm3 (4.0-10.5)
[2020-07-20 15:01] LABS: ALBUMIN 3.7 g/dL (3.5-5.0); ANION GAP 13.3 MEQ/L (5-15); BILIRUBIN,TOTAL 0.5 mg/dL (0.2-1.3); Calcium 9.9 mg/dL (8.4-10.2); Creatinine 1 1.76 mg/dL (0.52-1.04); EST GLOMERULAR FILTRATION RATE 28.9 ML/MIN; Potassium 3.5 mmol/L (3.5-5.1); Total Protein 7.8 g/dL (6.3-8.2)
[2020-07-20] MEDS ORDERED: TYLENOL 325 MG PO PRN (15:18)
[2020-07-20] MEDS ORDERED: REMDESIVIR 200 MG in Sodium Chloride 0.9% 250 ML 250 ML IV ONE (15:18)
[2020-07-20 15:24] LABS: Lymphocytes 15 % (24-44); Monocyte 3 % (0.0-12.0); Neutrophils 82 % (36.0-66.0); Platelet Estimate INCREASED (NORMAL); Total Cells Counted 100
[2020-07-20 15:25] LABS: ANISOCYTOSIS 1+; Polychromasia RARE
[2020-07-20] MEDS ORDERED: MORPHINE SULFATE 4 MG INJ IV PRN (15:28)
[2020-07-20] MEDS: VANCOCIN 500 MG VIAL*** 500 MG in Sodium Chloride 100ML MINI-BAG PLUS 100 ML IV SCH (16:33)
[2020-07-20] MEDS: Decadron 4 MG INJ IV SCH (18:18)
[2020-07-21 05:18] LABS: Hematocrit 46.1 % (35-47); Hemoglobin 13.2 gm/dl (12.0-16.0); Mean Cell Volume 90.7 fl (78-100); Mean Corpuscular Hgb Concent. 28.6 g/dl (32-36); Mean Platelet Volume 11.9 fl (7.5-11.0); Platelet Count 478 K/mm3 (150-450); Red Blood Count 5.08 M/mm3 (4.1-5.4); Red Cell Distribution Width 16.9 % (11.5-14.0)
[2020-07-21 05:34] LABS: ANION GAP 13.7 MEQ/L (5-15); Calcium 9.1 mg/dL (8.4-10.2); Creatinine 1 2.56 mg/dL (0.52-1.04); EST GLOMERULAR FILTRATION RATE 18.8 ML/MIN; Potassium 3.8 mmol/L (3.5-5.1)
[2020-07-21] MEDS: Decadron 4 MG INJ IV SCH ×2 (06:01→17:56)
[2020-07-21 07:17] LABS: ANISOCYTOSIS 1+; BAND 1 % (0.0-2.0); Lymphocytes 12 % (24-44); Monocyte 2 % (0.0-12.0); Neutrophils 85 % (36.0-66.0); Nucleated Red Blood Cell 1 %; Platelet Estimate NORMAL (NORMAL); Polychromasia RARE; Total Cells Counted 100
[2020-07-21 07:18] LABS: Toxic Granulation 1+
[2020-07-21] MEDS ORDERED: Daptomycin 500 MG Injection IV SCH (10:00)
[2020-07-21] MEDS: Dextrose 5% -0.45 NaCl 1000 ML 1,000 ML IV SCH ×2 (11:55→23:28)
--- NOTE | 2020-07-21 13:18 | HP ---
CHIEF COMPLAINT: 1) Poor responsiveness. 2) Inability to swallow. 3) Methicillin-resistant staphylococcus skin infection. 4) COVID infection. HISTORY OF PRESENT ILLNESS: The patient was referred by her attending physician at [facility]. She has not been drinking. She has been short of breath, using accessory muscles and looks like she is breathing. She was on 100% oxygen when she came in. COVID test has been positive today. She is supposed to be by their protocol transferred by bus to the [facility] for their COVID patient's. It is [place] hour [place] half to two [place] [address]. The physician did not think that she could live through that. She has been admitted here for treatment. She apparently has severe dementia and has been declining for some time at the facility. She will not talk to us, not open her eyes. She was exposed to COVID inside the nursing facility. PAST MEDICAL HISTORY: Hypertension in the past. Myocardial infarction in the distant past. SOCIAL HISTORY: She has several children, I believe. No history of cancer. No alcohol use. PHYSICAL EXAMINATION: The patient is unable to give us any history. MENTAL: She is lethargic, cachectic. HEENT: Pupils are 3 mm slightly reactive. NECK: Supple without adenopathy. JVD to jaw. CHEST: Clear. CVS: Regular rate. No murmurs or gallops. ABDOMEN: Very thin, scaphoid. No masses or organomegaly. Very cachectic looking. EXTREMITIES: Cachectic. Some contractures of the legs. Decubs of the heels. PLAN: 1) Will start some IV fluids as she seems to be dehydrated with some hyponatremia. 2) Treat her for decub. Her white count is up to 15,000. Use Vancomycin as she is positive for methicillin-resistant staphylococcus. 3) Will try some Remdesivir and steroids. 4) She is Do Not Intubate, Do Not Code. PROGNOSIS: Prognosis is actually very poor. In fact probably she will within the next day or so. Will give her some morphine if she is in any discomfort. She presently seems to be in no discomfort.
[2020-07-21] MEDS: REMDESIVIR 100 MG in Sodium Chloride 0.9% 100 ML IVPB 100 ML IV SCH (15:24)
[2020-07-22 05:15] LABS: Hematocrit 41.5 % (35-47); Hemoglobin 11.5 gm/dl (12.0-16.0); Mean Cell Volume 92.8 fl (78-100); Mean Corpuscular Hemoglobin 25.7 pg (26-32); Mean Corpuscular Hgb Concent. 27.7 g/dl (32-36); Mean Platelet Volume 12.2 fl (7.5-11.0); Platelet Count 363 K/mm3 (150-450); Red Blood Count 4.47 M/mm3 (4.1-5.4); Red Cell Distribution Width 16.7 % (11.5-14.0); White Blood Count 14.9 K/mm3 (4.0-10.5)
[2020-07-22 05:33] LABS: ANION GAP 13.8 MEQ/L (5-15); Potassium 4.1 mmol/L (3.5-5.1)
[2020-07-22] MEDS: Decadron 4 MG INJ IV SCH ×2 (06:10→17:57)
[2020-07-22] MEDS: Dextrose 5% -0.45 NaCl 1000 ML 1,000 ML IV SCH (10:17)
[2020-07-22] MEDS: ROCEPHIN 1 Gm-D5w 50 ml Bag** 1 G/50 ML IVPB IV SCH (10:50)
[2020-07-22] MEDS: ENOXAPARIN SODIUM SQ SCH (10:50)
[2020-07-22] MEDS: REMDESIVIR 100 MG in Sodium Chloride 0.9% 100 ML IVPB 100 ML IV SCH (14:58)
[2020-07-22] MEDS: VANCOCIN 500 MG VIAL*** 500 MG in Sodium Chloride 100ML MINI-BAG PLUS 100 ML IV SCH (15:42)
[2020-07-22] MEDS: MORPHINE SULFATE 4 MG INJ SQ PRN (20:15)
[2020-07-23] MEDS: Dextrose 5% -0.45 NaCl 1000 ML 1,000 ML IV SCH ×3 (02:11→20:41)
[2020-07-23] MEDS: MORPHINE SULFATE 4 MG INJ SQ PRN ×3 (04:39→16:38)
[2020-07-23 06:17] LABS: ANION GAP 16.2 MEQ/L (5-15); BILIRUBIN,TOTAL 0.3 mg/dL (0.2-1.3); Calcium 7.5 mg/dL (8.4-10.2); Creatinine 1 2.74 mg/dL (0.52-1.04); EST GLOMERULAR FILTRATION RATE 17.3 ML/MIN; Total Protein 6.2 g/dL (6.3-8.2)
[2020-07-23 06:19] LABS: Potassium 3.1 mmol/L (3.5-5.1)
[2020-07-23] MEDS: Decadron 4 MG INJ IV SCH (06:45)
[2020-07-23] MEDS: ENOXAPARIN SODIUM SQ SCH (08:54)
[2020-07-23] MEDS: ROCEPHIN 1 Gm-D5w 50 ml Bag** 1 G/50 ML IVPB IV SCH (08:54)
--- NOTE | 2020-07-23 09:43 | PROG NOTE ---
HISTORY: The patient is an 89 year old white female who was admitted really in morbid situation. Blood pressure low, poorly responsive, dehydrated and some decubs on her heels and hips from [place] as a Do Not Resuscitate. However, she was very uncomfortable and Dr. Valle asked to admit her and make her comfortable, that she will probably from complications of her underlying disease plus the COVID. It has been 48 hours since I had seen her. She is moving around and looking at me. She has been receiving some half normal saline to correct her dehydration and also to get her sodium down. The sodium is still markedly elevated at 168 which had been at 172. Potassium 3.1. Her creatinine is 2.74. D-dimer is down from 2500 to 1800. She is on mask with 10 liters of oxygen. She is comfortable. She is pink. Her decubs are dry and there is no cellulitis around them. She is on some Levaquin for that. IMPRESSION: The patient is dying from hyponatremia, reflection of her hypothalamus, not adequately monitoring her fluids and now severe dehydration. We have given her some fluids, keep her comfortable. PROGNOSIS: Poor.
[2020-07-24] MEDS: MORPHINE SULFATE 4 MG INJ SQ PRN ×3 (01:30→23:08)
[2020-07-24 07:43] LABS: Hematocrit 39.2 % (35-47); Hemoglobin 10.7 gm/dl (12.0-16.0); Mean Cell Volume 95.6 fl (78-100); Mean Corpuscular Hemoglobin 26.1 pg (26-32); Mean Corpuscular Hgb Concent. 27.3 g/dl (32-36); Mean Platelet Volume 12.6 fl (7.5-11.0); Platelet Count 247 K/mm3 (150-450); Red Cell Distribution Width 17.7 % (11.5-14.0); White Blood Count 9.3 K/mm3 (4.0-10.5)
[2020-07-24 07:48] LABS: ANION GAP 11.4 MEQ/L (5-15)
[2020-07-24 08:06] LABS: Potassium 3.6 mmol/L (3.5-5.1)
[2020-07-24 08:55] LABS: Slide Review YES
[2020-07-24] MEDS: ROCEPHIN 1 Gm-D5w 50 ml Bag** 1 G/50 ML IVPB IV SCH (10:45)
[2020-07-24] MEDS: ENOXAPARIN SODIUM SQ SCH (10:45)
[2020-07-24] MEDS ORDERED: TROUGH DRUG LEVELS IJ ONE (15:30)
[2020-07-24] MEDS: VANCOCIN 500 MG VIAL*** 500 MG in Sodium Chloride 100ML MINI-BAG PLUS 100 ML IV SCH (15:49)
[2020-07-25] MEDS: MORPHINE SULFATE 4 MG INJ SQ PRN (05:44)
[2020-07-25] MEDS: ROCEPHIN 1 Gm-D5w 50 ml Bag** 1 G/50 ML IVPB IV SCH (08:55)
[2020-07-25] MEDS: ENOXAPARIN SODIUM SQ SCH (08:56)
[2020-07-25] MEDS: Dextrose 5% -0.45 NaCl 1000 ML 1,000 ML IV SCH (20:36)
[2020-07-26] MEDS: ENOXAPARIN SODIUM SQ SCH (09:36)
[2020-07-26] MEDS: ROCEPHIN 1 Gm-D5w 50 ml Bag** 1 G/50 ML IVPB IV SCH (09:36)
--- NOTE | 2020-07-26 13:03 | PROG NOTE ---
DATE: 07/24/2020 HISTORY: The patient appears the same as yesterday. She will look at me when I touch her with sort of a searching eyes. She has never been verbal since I have known her. I doubt if she was verbal recently. She has no meaningful movement of the arms. She is kind of contracted with decubs on the heels and hip which are clean and stage III. She does not understand where she is at or what is going on I do not think. She is not taking anything to eat. Her temperature is down. Her oxygen level is fine on room air. Her sodium is still elevated as we would expect it to be since she is not taking fluids. Potassium was normal. White count was normal. At this time she is here basically given Hospice-type treatment. It was felt that she was dying the day she came from [place] where doctor asked to admit her here for Hospice care. She had COVID and otherwise would have been transferred one and a half to two hours in a bus to their unit in [place] and she felt that inappropriate. She is stable. Blood pressure is starting to drop a little bit. She is afebrile. She is dying, will probably this weekend I would imagine. IMPRESSION: 1) COVID. 2) Hypernatremia. 3) Severe dementia. 4) Decubs.
--- NOTE | 2020-07-26 13:41 | PROG NOTE ---
DATE: 07/25/2020 HISTORY: The patient is not moving. Her pupils are 3 mm and fixed. She is pink. Decubitus on her heels and buttocks are the same. They are not open or oozing. She is in no distress. Temperature this morning was 97F, pulse 60, respirations 15, blood pressure 103/58. O2 is 100%. Coumadin has been cut back to her severe Alzheimer's, contractures, decubs and wish to not be resuscitated. Main problem on top of those was the sodium by the time she came in was elevated like 170. Her D-dimer level was markedly elevated at 2,600. PROGNOSIS: Terrible on admission and worse today, probably will today.
[2020-07-26] MEDS: MORPHINE SULFATE 4 MG INJ IV PRN (15:10)
[2020-07-27] MEDS: MORPHINE SULFATE 4 MG INJ IV PRN (09:18)
--- NOTE | 2020-07-27 09:48 | PROG NOTE ---
DATE: 07/26/2020 HISTORY: The patient remains nonverbal. She does not react to pain although she does look up. Pupils are pinpoint. Babinski's bilateral. Her sodium is 168 slightly down from 170. I do not think that is significant. She is not getting much fluid at all. She is Do Not Resuscitate and Supportive Care Only. She is comfortable and we have orders for morphine as she becomes agitated with pain but I think really she is in advanced renal failure, hypernatremia and probably will soon. I noticed when she came in she was on Vancomycin. Her decubs look fine. No signs of infection. Her trough level at that time was 7.86 which is therapeutic and not dangerous particularly. Bacteria was Providencia Stuartii growing out of her wound which usually is not very aggressive. The patient is declining as expected. She does have COVID, severe Alzheimer's, decubs secondary to inability to position herself and refuses to eat.
[2020-07-27] MEDS: ROCEPHIN 1 Gm-D5w 50 ml Bag** 1 G/50 ML IVPB IV SCH (10:55)
[2020-07-27] MEDS: ENOXAPARIN SODIUM SQ SCH (10:56)
--- NOTE | 2020-07-27 14:47 | PROG NOTE ---
DATE: 07/27/2020 HISTORY: She is in a no resuscitative mode due to dementia, inability to eat, hypernatremia from dehydration. She has urinary tract infection. She is asymptomatic which she is afebrile. She has some shallow decubs on the hips and heels which are not purulent looking. They are cool and they are not grossly infected. Last sodium was 168. We stopped checking them once we decided not to treat her aggressively. We stopped any COVID treatment as she is not needing any oxygen. She is not coughing. She looks at us, will not talk the last couple of days. However when I poured water in her mouth she swallowed it and seemed to want more. PHYSICAL EXAMINATION: Chest: Clear. CVS: Heart sounds regular. Abdomen: Scaphoid and thin. Extremities: She can just barely moves her legs, just barely moves her arms. She is extremely cachectic. IMPRESSION: End stage dementia with inability and no desire to eat. Hypernatremia. COVID which is probably not a problem. The big problem is she no longer capable of eating and is Do Not Resuscitate. She is stable and could be transferred to a prison that takes COVID patients. Understandably the attending did not want to put her on a bus to take her to [place] which is two hours away. We may have to do that or find a closer prison. She is stable and really she is just getting normal saline at 25 cc/hour and we will give her 4 of morphine if she seems like she is in discomfort which occasionally she does. Overall she is very comfortable and dying at a little bit slower rate than we all thought she would.
[2020-07-27] MEDS: Dextrose 5% -0.45 NaCl 1000 ML 1,000 ML IV SCH (15:29)
[2020-07-27] MEDS: VANCOCIN 500 MG VIAL*** 500 MG in Sodium Chloride 100ML MINI-BAG PLUS 100 ML IV SCH (15:30)
[2020-07-28] MEDS: MORPHINE SULFATE 4 MG INJ IV PRN (03:43)
--- NOTE | 2020-07-28 09:30 | PROG NOTE ---
DATE: 07/28/2020 HISTORY: The patient is deep in a coma. She has no cornea reflex. Pupils are 3 mm. She does not moan when I pinch her skin lightly. She is on no oxygen. She requires no oxygen. O2 saturations are high. Has not had any blood work lately. She is deteriorating and not taking fluids well. We expect her to from severe dementia that keeps her from eating or moving. The COVID has never really been a danger to her. She has tolerated that well. Last sodium on 07/24/2020, four days ago, was 168. [facility] I [facility] they take them after seven days here, if she is still with us tomorrow. IMPRESSION: 1) COVID. 2) Hypernatremia due to dehydration. 3) Dehydration due to lack of fluids due to her dementia Alzheimer's type. 4) Decubs, stable. PROGNOSIS: Terminal.
[2020-07-28] MEDS: ENOXAPARIN SODIUM SQ SCH (09:51)
[2020-07-28] MEDS: ROCEPHIN 1 Gm-D5w 50 ml Bag** 1 G/50 ML IVPB IV SCH (10:05)
[2020-07-28] MEDS ORDERED: MORPHINE SULFATE 4 MG INJ SQ PRN (13:50)
[2020-07-29] MEDS: ENOXAPARIN SODIUM SQ SCH (09:18)
--- NOTE | 2020-07-29 13:19 | PROG NOTE ---
DATE: 07/29/2020 HISTORY: An 89 year-old white female who is dying due to complications with Alzheimer's dementia as she had quit eating for quite a few days before she came down with COVID. She came in with a very high sodium of like 169 and poorly responsive. Initially we did give her some fluids and her sodium came down to like 165 or so and did not realize she is a No Code. She had not talked, eaten and could not turn herself. We stopped all treatment with fluids, stopped antibiotics because really I did not see anything that was infectious. She has some decubs but they are dry on her heels and hips. She has remained this way, getting worse in fact that would look at people but presently she does not look. Pupils are pinpoint, nonreactive, somewhat due to morphine injections she gets occasionally. She seems to be in distress. She does not react to touching her shoulder. She looks more dusky to me although her O2 saturations are okay. Basically the patient is dying from complications of dementia which include not eating, hypernatremia, renal failure and incidentally caught COVID. COVID has not been a major factor. She has some decubs which are not infectious. The fact that she is not on fluids for three or four days would cause her temperature to rise. She is not coughing. Urine looks clear. At this point is eminent. She could be switched back to her local jail to if that is decided the best thing to do since we are not treating her. Her temperature may well be mildly elevated secondary to her dehydrated state. No signs of infection.
[2020-07-29] MEDS ORDERED: FEVERALL 650 MG PR PRN (14:31)
[2020-07-30] MEDS: ENOXAPARIN SODIUM SQ SCH (10:05)
[2020-07-30 12:44] VITALS: BP 83/47; PULSE 76; O2SAT 96
== END 2020-07-30 12:50 | DRG 177 ==
LOC: ED 12:52 → MED SURG 14:50
PROVIDERS: ADMIT Family Medicine; ATTEND Family Medicine
DX: U07.1 COVID-19 (principal); L89.223 Pressure ulcer of left hip, stage 3; L89.213 Pressure ulcer of right hip, stage 3; E87.1 Hypo-osmolality and hyponatremia; N39.0 Urinary tract infection, site not specified; L08.9 Local infection of the skin and subcutaneous tissue, unspecified; B95.62 Methicillin resistant Staphylococcus aureus infection as the cause of diseases classified elsewhere; R13.10 Dysphagia, unspecified; F03.90 Unspecified dementia, unspecified severity, without behavioral disturbance, psychotic disturbance, mood disturbance, and anxiety; E86.0 Dehydration; L89.629 Pressure ulcer of left heel, unspecified stage; L89.619 Pressure ulcer of right heel, unspecified stage; L89.529 Pressure ulcer of left ankle, unspecified stage; L89.519 Pressure ulcer of right ankle, unspecified stage
CPT/HCPCS: 36415; 80048; 80051; 80053; 80202; 83605; 85025; 85027; 85379; 87040; 87070; 87077; 87086; 87186; 94762; 99285; J0696; J1100; J1650; J2270; J3370; A9270-GY